=== PATIENT | female | born 1970 | race Caucasian/White ===

== ENCOUNTER 2017-12-26 01:58 | Inpatient (IN) ==
--- NOTE | 2017-12-26 05:10 | Internal Med History&Physical ---
<Ja Aguilar - Last Filed: 12/26/17 06:13> Date of Encounter: 12/26/17 Time of Encounter: 05:08 Internal Medicine - H&P: HPI Chief complaint: Nausea, Diarrhea Admitted From: Hospital to Hospital Transfer History of present illness: Ms. Palm is a 47 year old female with a PMH of COPD, diabetes mellitus type 2 , GERD, hypertension, hyperlipidemia, RA, thyroid disease, and tobacco dependence who was transferred from [facility] due to sepsis. The patient reported fever, chills, headache, shortness of breath, productive cough, nausea , and diarrhea 15 per day for the past 2 days. Patient is immunosuppressed on prednisone and leflunomide for her rheumatoid arthritis. Labs revealed a white blood count 29, respiratory alkalosis, hypokalemia, hypomagnesemia, and lactic level 3.3. Patient was given 3 L normal saline fluid bolus, started on empiric antibiotics, and blood cultures were collected. Patient was transferred for [facility] for further care. is at bedside Past Med Surg Social Fam HX - Past Medical History Medical history: COPD, diabetes, GERD, hyperlipidemia, hypertension, RA, thyroid disease, other Additional medical history: benign nodules in lungs, chronic diarrhea Psychiatric history: no psych history - Past Surgical History Surgical History: cholecystectomy, hysterectomy Additional surgical history: tubal ligation, bone marrow biopsy - Social History Smoking Status: Current every day smoker Smokeless Tobacco Status: No Alcohol use: none Drug use: none Current living situation: Home, With Family Activity Level: Independent ambulation - Family History Mother Hx Family Respiratory Disorders: Yes (COPD) Father Hx Family Medical Disorders: Yes (RA) Internal Medicine - H&P: Meds Cetirizine HCl [All Day Allergy] 10 mg PO DAILY 08/25/17 [History] Leflunomide [Leflunomide] 20 mg PO DAILY 08/25/17 [History] Levothyroxine [Synthroid] 50 mcg PO 0630 08/25/17 [History] Omeprazole [PriLOSEC] 20 mg PO DAILY 08/25/17 [History] glipiZIDE [Glipizide] 10 mg PO DAILY 08/25/17 [History] Albuterol Sulfate [Proair Hfa] 1 puff IH TID PRN 08/31/17 [History] Budesonide/Formoterol 160/4.5 [Symbicort 160/4.5] 2 puff IH BID 10/06/17 [ History] Lactobacillus Acidophilus [Acidophilus] 1 cap PO DAILY 10/06/17 [History] Lisinopril/Hydrochlorothiazide [Zestoretic 20-25 mg Tablet] 1 tab PO DAILY PRN 10/06/17 [History] Lovastatin [Lovastatin] 40 mg PO HS 10/06/17 [History] amLODIPine [Norvasc] 5 mg PO DAILY PRN 10/06/17 [History] predniSONE [PredniSONE] 15 mg PO DAILY 12/26/17 [History] 3 Allergy/AdvReac Type Severity Reaction Status Date / Time golimumab [From Simponi ARIA] Allergy Hives Verified 10/06/17 08:24 Oxycodone [From Percocet] AdvReac Itching Verified 10/06/17 08:24 tramadol AdvReac Hallucinati Verified 10/06/17 08:24 ng All Systems PM: A 10-system review of systems was performed and is negative for pertinent findings except as documented above in the HPI. - Constitutional Constitutional: chills, fatigue, fever(s), lethargy, weakness, no weight gain, no weight loss - EENT Eyes: no blurry vision, no diplopia Nose, mouth and throat: no sinus pain, no sore throat - Cardiovascular Cardiovascular ROS IM: palpitations, no chest pain, no dyspnea - Respiratory Respiratory: cough, chest congestion, excessive phlegm production (yellow), change in phlegm color, no wheezing - Gastrointestinal Gastrointestinal: abdominal pain, cramping, diarrhea, nausea, no constipation, no heartburn, no vomiting - Genitourinary Genitourinary: no dysuria, no urinary frequency, no urinary urgency - Musculoskeletal Musculoskeletal ROS IM: arthralgias, neck pain, no numbness, no tingling - Integumentary Integumentary IM: no erythema, no new lesions, no rash - Neurological Neurological ROS: headache(s), weakness, no confusion, no numbness, no tingling - Psychiatric Psychiatric: no anxiety, no depression - Endocrine Endocrine IM: fatigue, no polydipsia, no polyphagia, no polyuria - Hematologic/Lymphatic Hematologic/Lymphatic: no easy bleeding, no easy bruising - Head Head exam: Present: atraumatic, normocephalic - Eye Eye exam: Present: EOMI, PERRL, conjuntiva pink, sclera anicteric Pupils: Present: PERRL - ENT ENT exam: Present: mucous membranes dry, normal oropharynx - Neck Neck exam general surgery: Present: full ROM, normal inspection, supple, trachea midline. Absent: lymphadenopathy, tenderness, nuchal rigidity - Respiratory Respiratory exam: Present: decreased breath sounds, wheezes. Absent: accessory muscle use, rales, respiratory distress, rhonchi Additional comments: On 3 L oxygen via nasal cannula - Cardiovascular Cardiovascular exam: Present: RRR, +S1, +S2, tachycardia. Absent: diastolic murmur, gallop, rubs, systolic murmur - GI/Abdominal GI/Abdominal exam: Present: normal bowel sounds, soft, tenderness (Periumbilical ), no peritoneal signs. Absent: distended, guarding - Extremities Exam Extremities exam: Present: normal capillary refill, normal inspection, warm, radial pulses palpable and symmetrical. Absent: calf tenderness, cyanotic, pedal edema, tenderness - Back Exam Back exam: Present: normal inspection. Absent: CVA tenderness (L), CVA tenderness (R), paraspinal tenderness, tenderness - Neurological Exam Neurological exam: Present: alert, CN II-XII intact, oriented X3, no focal deficits. Absent: pronater drift, facial droop, speech deficit - Psychiatric Psychiatric exam: Present: normal affect, normal mood - Skin Skin exam: Present: dry, intact, normal color, warm Internal Med - H&P Results - Pulse Oximetry Interpretation Digit-Finger O2 Sat by Pulse Oximetry: 97 (On 3 L supplemental oxygen) - EKG Data -: EKG Interpreted by Myself EKG shows normal: sinus rhythm, intervals Rate: tachycardia (Heart rate 117, nonspecific ST-T wave abnormalities, intervals within normal limits) - Impressions XR/XR chest 1V portable IMPRESSION: 1. Stable chronic lateral costophrenic angle pulmonary opacities and partially loculated effusions compared to CT thorax 12/02/2017. 2. No acute pulmonary process. D/ / Jermaine Ellis MD / Jermaine Ellis MD Interpreting Provider: Jermaine Ellis MD - Assessment and plan (1) Sepsis Current Visit: Yes Status: Acute Assessment and plan: Patient met 3 of 4 SIRS criteria: Heart rate 126, respiratory rate 26, white blood count 29.0 Lactic acid 3.3, repeat lactic acid level pending Community-acquired pneumonia versus gastroenteritis as likely sources of infection UA negative Patient received 3 L normal saline sepsis bolus at [facility] prior to transfer Continue gentle hydration Continue empiric antibiotics Blood and sputum cultures pending Qualifiers: Sepsis type: sepsis due to unspecified organism Qualified Code(s): A41.9 - Sepsis, unspecified organism (2) Diarrhea Current Visit: Yes Status: Acute Assessment and plan: Colonoscopy 08/18/2017 was remarkable for mild inflammation within the sigmoid consistent with colitis. Biopsy showed 1 tumor adenoma otherwise no other diagnostic abnormality. There was no eosinophilic infiltrate. GI panel pending CT abdomen pelvis with contrast pending Continue antiemetics Continue gentle hydration Qualifiers: Diarrhea type: unspecified type Qualified Code(s): R19.7 - Diarrhea, unspecified (3) Community acquired pneumonia Current Visit: Yes Status: Acute Assessment and plan: CXR revealed no acute pulmonary process, stable chronic lateral costophrenic angle pulmonary opacities and partially loculated effusions compared to CT thorax 12/02/2017. Patient appears volume bleed on exam, she received 3 L normal saline in [facility] prior to arrival We will repeat chest x-ray following IV hydration Urine Legionella and sharp pneumonia antigens pending Sputum culture pending Continue empiric antibiotics De-escalate antibiotics based on culture results Continue bronchodilators Continue incentive spirometry Qualifiers: Laterality: unspecified laterality Qualified Code(s): J18.9 - Pneumonia, unspecified organism (4) COPD (chronic obstructive pulmonary disease) Current Visit: No Status: Chronic Assessment and plan: Not in acute exacerbation Continue bronchodilators Qualifiers: COPD type: unspecified COPD Qualified Code(s): J44.9 - Chronic obstructive pulmonary disease, unspecified (5) Rheumatoid arthritis Current Visit: Yes Status: Chronic Assessment and plan: Patient was diagnosed with rheumatoid arthritis approximate 2 years ago. She is managed with leflunomide. She has been challenged with Humira but had an allergic reaction, this was discontinued. About one to 2 months after reinitiation of leflunomide per patient report, she developed fever, fatigue, headache as found to have an elevated eosinophil count. While at [facility], a CT scan of the chest revealed multiple pulmonary nodules which were biopsied and consistent with rheumatoid nodules. Just prior to this event , she states she was on prednisone chronically and this was discontinued as well. Qualifiers: Rheumatoid arthritis location: unspecified site Rheumatoid factor presence : without rheumatoid factor Qualified Code(s): M06.00 - Rheumatoid arthritis without rheumatoid factor, unspecified site (6) Hypertension Current Visit: Yes Status: Chronic Assessment and plan: Hold home lisinopril/hydrochlorothiazide in the setting of sepsis to prevent ROLANDO Hydralazine IV prn Qualifiers: Hypertension type: essential hypertension Qualified Code(s): I10 - Essential (primary) hypertension (7) Hyperlipidemia Current Visit: No Status: Chronic Assessment and plan: Continue home meds Qualifiers: Hyperlipidemia type: unspecified Qualified Code(s): E78.5 - Hyperlipidemia , unspecified (8) Diabetes mellitus type 2 in obese Current Visit: No Status: Chronic Assessment and plan: Hemoglobin A1c 7.8 on 12/24/17 Continue low dose SSI Monitor Accu-Checks ADA diet (9) GERD (gastroesophageal reflux disease) Current Visit: No Status: Chronic Assessment and plan: Continue PPI Qualifiers: Esophagitis presence: esophagitis presence not specified Qualified Code(s) : K21.9 - Gastro-esophageal reflux disease without esophagitis (10) Hypothyroidism Current Visit: No Status: Chronic Assessment and plan: Continue home meds Qualifiers: Hypothyroidism type: unspecified Qualified Code(s): E03.9 - Hypothyroidism , unspecified (11) Hypokalemia Current Visit: Yes Status: Acute Assessment and plan: Potassium supplementation given at [facility] Repeat potassium level pending Continue monitoring (12) Hypomagnesemia Current Visit: Yes Status: Acute Assessment and plan: Magnesium supplementation given at [facility] Repeat magnesium level pending Continue monitoring (13) Tobacco dependence Current Visit: No Status: Chronic Assessment and plan: Tobacco cessation discussed Patient declined need for nicotine patch (14) DVT prophylaxis Current Visit: Yes Status: Acute Assessment and plan: Heparin subcutaneous TID (15) Adrenal insufficiency Current Visit: Yes Status: Acute Assessment and plan: Patient is chronically on 15 mg prednisone daily for the past 2 months, she has missed a few doses during the past few days Continue hydrocortisone IV for suspected adrenal insufficiency Closely monitor blood pressure - Time Spent With Patient Total time spent is greater than 50% in coordination of care (as documented) at patient's floor/unit and/or counseling patient: <Steve Bernabe - Last Filed: 12/26/17 07:15> Date of Encounter: 12/26/17 Time of Encounter: 06:15 - Constitutional Constitutional: chills, fever(s) - EENT Nose, mouth and throat: no nasal congestion, no sore throat - Cardiovascular Cardiovascular ROS IM: no chest pain, no dyspnea - Respiratory Respiratory: cough, chest congestion, excessive phlegm production, change in phlegm color - Gastrointestinal Gastrointestinal: cramping, diarrhea, nausea, no hematemesis, no hematochezia, no melena - Genitourinary Genitourinary: no dysuria, no flank pain, no hematuria - Constitutional Vitals: Temp Pulse Resp BP Pulse Ox 98.5 F 116 18 118/83 96 12/26/17 05:42 12/26/17 05:42 12/26/17 05:42 12/26/17 05:42 12/26/17 05:42 General appearance: Present: cooperative, mild distress, A&O X 3, pleasant, answers questions appropriately - Head Head exam: Present: normal inspection - Eye Eye exam: Present: PERRL. Absent: scleral icterus Pupils: Present: normal accommodation - ENT ENT exam: Present: mucous membranes dry, normal oropharynx - Neck Neck exam general surgery: Present: supple - Respiratory Respiratory exam: Present: decreased breath sounds, wheezes. Absent: chest wall tenderness - Cardiovascular Cardiovascular exam: Present: RRR, +S1, +S2, tachycardia - GI/Abdominal GI/Abdominal exam: Present: normal bowel sounds, soft, tenderness (mild). Absent: hepatomegaly, mass, splenomegaly - Extremities Exam Extremities exam: Present: normal capillary refill, warm, radial pulses palpable and symmetrical. Absent: pedal edema, tenderness - Back Exam Back exam: Absent: CVA tenderness (L), CVA tenderness (R) - Psychiatric Psychiatric exam: Present: normal affect, normal mood - Skin Skin exam: Present: dry, intact, warm - Attending Attestation I discussed the [place], past medical history, review of systems, lab data, and exam findings with Dr. Aguilar. I then saw and examined patient independently. I reviewed the records from [facility], reviewed the x-ray personally, interviewed the patient, and examined patient independently. Of note, patient is on chronic Prednisone 15 mg a day for at least 2 months, if not longer. She takes this medication along with other medications for treatment of her rheumatoid arthritis. Given her clinical presentation of sepsis, profound diarrhea, abdominal pain and cramping, I am concerned about adrenal insufficiency with possible evolving crisis. She received 3 L of fluid boluses at [facility]. We will keep her on IV fluids here as well as antibiotics. In addition, we will keep her on stress dose IV steroids for treatment of adrenal insufficiency and sepsis. If then she declines hemodynamically, she will need to be placed in the ICU for ongoing support. However, at the present time, she is maintaining hemodynamic stability. Despite the fluid boluses she has received at [facility], she still appears to be intravascular dry. We will keep her on IV fluid hydration and rebolus as necessary. Although she has minimal abdominal pain now, I do recommend ordering a CT scan of the abdomen and pelvis given her profound leukocytosis, lactic acidosis, and GI symptomatology. i discussed this with patient and her and they are in agreement with the plan. Other than my comments above and noted physical exam findings, I agree with Dr. Aguilar's assessment and plan. - Assessment and plan (1) Hypokalemia Current Visit: Yes Status: Acute (2) Hypomagnesemia Current Visit: Yes Status: Acute (3) Sepsis Current Visit: Yes Status: Acute Qualifiers: Sepsis type: sepsis due to unspecified organism Qualified Code(s): A41.9 - Sepsis, unspecified organism (4) DVT prophylaxis Current Visit: Yes Status: Acute (5) COPD (chronic obstructive pulmonary disease) Current Visit: No Status: Chronic Qualifiers: COPD type: unspecified COPD Qualified Code(s): J44.9 - Chronic obstructive pulmonary disease, unspecified (6) Community acquired pneumonia Current Visit: Yes Status: Acute Qualifiers: Laterality: unspecified laterality Qualified Code(s): J18.9 - Pneumonia, unspecified organism (7) Tobacco dependence Current Visit: No Status: Chronic (8) Hypertension Current Visit: Yes Status: Chronic Qualifiers: Hypertension type: essential hypertension Qualified Code(s): I10 - Essential (primary) hypertension (9) Hyperlipidemia Current Visit: No Status: Chronic Qualifiers: Hyperlipidemia type: unspecified Qualified Code(s): E78.5 - Hyperlipidemia , unspecified (10) GERD (gastroesophageal reflux disease) Current Visit: No Status: Chronic Qualifiers: Esophagitis presence: esophagitis presence not specified Qualified Code(s) : K21.9 - Gastro-esophageal reflux disease without esophagitis (11) Rheumatoid arthritis Current Visit: Yes Status: Chronic Qualifiers: Rheumatoid arthritis location: unspecified site Rheumatoid factor presence : without rheumatoid factor Qualified Code(s): M06.00 - Rheumatoid arthritis without rheumatoid factor, unspecified site (12) Hypothyroidism Current Visit: No Status: Chronic Qualifiers: Hypothyroidism type: unspecified Qualified Code(s): E03.9 - Hypothyroidism , unspecified (13) Diabetes mellitus type 2 in obese Current Visit: No Status: Chronic (14) Diarrhea Current Visit: Yes Status: Acute Qualifiers: Diarrhea type: unspecified type Qualified Code(s): R19.7 - Diarrhea, unspecified (15) Adrenal insufficiency Current Visit: Yes Status: Acute - Time Spent With Patient Total time spent is greater than 50% in coordination of care (as documented) at patient's floor/unit and/or counseling patient:
[2017-12-26] MEDS ORDERED: *HR* HYDROcodone/Acet 5/325 mg TABLET PO PRN (05:49)
[2017-12-26] MEDS ORDERED: D5% in Water 1,000 ML IVC PRN (05:49)
[2017-12-26] MEDS ORDERED: Ondansetron 4 MG/2 ML VIAL IVP PRN (05:49)
[2017-12-26] MEDS ORDERED: Dextrose Gel 15 GM/37.5 ML TUBE PO PRN ×2 (05:49)
[2017-12-26] MEDS ORDERED: Naloxone 0.4 MG/ML INJ IVP PRN (05:49)
[2017-12-26] MEDS ORDERED: *HR* Dextrose 50 % in Water (Syg) 50 ML SYRINGE IVP PRN (05:49)
[2017-12-26] MEDS ORDERED: Ketorolac 15 MG/ML VIAL IVP ONE (05:51)
[2017-12-26] MEDS ORDERED: 0.9 % Sodium Chloride 1,000 ML IVC SCH ×2 (06:00→06:41)
[2017-12-26] MEDS ORDERED: Vancomycin (wt based) 1,000 MG VIAL IVPB SCH (06:00)
[2017-12-26] MEDS ORDERED: Isovue-370 500 ML INFUS..BTL IV ONE (06:09)
[2017-12-26] MEDS: *HR* Heparin 5,000 UNIT/ML VIAL SQ SCH ×3 (06:30→22:13)
[2017-12-26 06:45] LABS: Basophils % 0.3 %
[2017-12-26 06:47] LABS: Basophils # 0.1 K/mcL (0.0-0.2); Eosinophils # 0.2 K/mcL (0.0-0.6); Eosinophils % 0.7 %; Hematocrit 34.2 % (35.3-44.9); Hemoglobin 10.8 g/dL (11.5-15.4); Immature Granulocytes % 1.5 % (0-4); Lymphocytes # 1.8 K/mcL (0.6-4.6); Lymphocytes % 6.3 %; Mean Corpuscular HGB Conc 31.6 g/dL (31.6-35.5); Mean Corpuscular Hemoglobin 27.9 pg (28.0-33.3); Mean Corpuscular Volume 88.4 fL (83.0-100.0); Mean Platelet Volume 11.4 fL (9.4-12.4); Monocytes % 3.6 %; Platelet Count 246 K/mcL (140-400); Red Blood Count 3.87 M/mcL (3.82-4.97); Red Cell Distribution Width 17.7 % (11.5-14.5); Segmented Neutrophils % 87.6 %
[2017-12-26 07:04] LABS: BUN/Creatinine Ratio 14 (6-26); Blood Urea Nitrogen 9 mg/dL (6-20); Calcium 8.1 mg/dL (8.6-10.3); Carbon Dioxide 24 mEq/L (23-29); Chloride 105 mEq/L (98-107); Glucose 161 mg/dL (70-105); Osmolality,Calculated 284 (280-300); Potassium 3.7 mEq/L (3.5-5.1); Sodium 136 mEq/L (136-145); eGFR For African Americans > 60 (> 60); eGFR For Non-African Americans > 60 (> 60)
[2017-12-26 07:15] LABS: Neutrophils # 24.6 K/mcL (1.6-8.9)
[2017-12-26] MEDS: Ipratropium/Albuterol Neb 3 ML IH SCH ×5 (07:38→23:53)
[2017-12-26] MEDS: Hydrocortisone Sodium Succ 100 MG/2 ML VIAL IVP SCH ×3 (07:42→15:55)
[2017-12-26] MEDS ORDERED: Hydrocortisone Sodium Succ 100 MG/2 ML VIAL IVP SCH (08:00)
[2017-12-26] MEDS: Insulin LISPRO 300 UNITS/3 ML VIAL SQ SCH ×4 (08:24→22:14)
[2017-12-26 08:35] LABS: Platelet Estimate Normal (Normal)
[2017-12-26] MEDS: MetroNIDAZOLE 500 MG/100 ML 500 MG/100 ML BAG IVPB SCH ×2 (09:11→15:54)
[2017-12-26 11:30] LABS: Adenovirus F 40/41 PCR Not detected (Not detect); Astrovirus PCR Not detected (Not detect); C.difficile Toxin A/B by PCR Not detected (Not detect); Cryptosporidium by PCR Not detected (Not detect); Cyclospora cayetanensis PCR Not detected (Not detect); E. coli O157 by PCR Not detected (Not detect); Entamoeba histolytica PCR Not detected (Not detect); Enteroaggregative E.coli(EAEC) Not detected (Not detect); Enteropathogenic E.coli(EPEC) DETECTED (Not detect); Enterotoxigenic E.coli (ETEC) Not detected (Not detect); Giardia lamblia PCR Not detected (Not detect); Norovirus GI/GII PCR Not detected (Not detect); Plesiomonas shigelloides PCR Not detected (Not detect); Rotavirus A PCR Not detected (Not detect); Salmonella PCR Not detected (Not detect); Sapovirus PCR Not detected (Not detect); Shig/EnteroinvasiveE coli EIEC Not detected (Not detect); Shigalike tox-prod E coli STEC Not detected (Not detect); Vibrio PCR Not detected (Not detect); Vibrio cholerae PCR Not detected (Not detect); Yersinia enterocolitica PCR Not detected (Not detect)
[2017-12-26 11:34] LABS: Campylobacter by PCR DETECTED (Not detect)
[2017-12-26] MEDS ORDERED: Piperacillin/Tazobactam 3.375 GM in 0.9 % Sodium Chloride Mini Bag 100 ML IVPB SCH (12:00)
[2017-12-26] MEDS: Azithromycin 500 MG in D5% in Water 250 ML IVPB SCH (12:34)
--- NOTE | 2017-12-26 14:40 | Sepsis Event Note ---
Sepsis Reassessment Note - Evaluation Sepsis Screen: Sepsis Risk Current Stage of Sepsis: sepsis Possible Source of Sepsis: GI tract/intra-abdominal - Focused Exam Date of Encounter: 12/26/17 Time of Encounter: 11:00 Vital Signs: Vital Signs Temp Pulse Resp BP Pulse Ox 12/26/17 11:57 97.6 F 88 16 118/77 95 12/26/17 11:31 16 98 12/26/17 09:15 95 12/26/17 07:48 97.4 F L 112 16 136/81 97 12/26/17 07:38 16 98 12/26/17 05:42 98.5 F 116 18 118/83 96 Respiratory Exam: Present: wheezes, rhonchi Cardiovascular Exam: Present: RRR Capillary Refill: < 2 seconds Peripheral Pulse Strength: 3+ normal Peripheral Pulse Location: Pedal Skin Exam: unremarkable
--- NOTE | 2017-12-26 16:01 | Internal Med Progress Note ---
<Gilberto Fierro - Last Filed: 12/26/17 17:06> Date of Encounter: 12/26/17 Time of Encounter: 10:30 - Assessment and plan (1) Community acquired pneumonia Current Visit: Yes Status: Acute Assessment and plan: - patient presented with fever, COCHRAN, SOB on admission. - Her chest CT was positive for small bilateral pleural effusion with mild interstitial edema - we were initially treating her with broad spectrum Abx : Vanc/Zosyn, currently she's been treated with Azithromycin to cover for CAP in conjunction with her diarrhea. She also has coverage with flagyl, Ciprofloxacin. Her sputum cultures are pending - Qualifiers: Laterality: unspecified laterality Qualified Code(s): J18.9 - Pneumonia, unspecified organism (2) Diarrhea Current Visit: Yes Status: Acute Assessment and plan: -patient was admitted for multiple episodes of watery diarrhea (15 right before she was admitted to the ED). This could be secondary to her recent visit to [place]- with possible exposure to either undercooked meat, chicken or contaminated water - her GI panel was positive for Campylobactor jejuni, and EPEC. She also had a colonoscopy 08/18/2017 was remarkable for mild inflammation within the sigmoid consistent with colitis, although colitis would manifest with blood in the stool and guarding in PE which the patient did not seem to have - she's on day 1 of Azithromycin, Cipro and Flagyl. Patient's vitals are WNL , - We will start with gentle hydration for her diarrhea Qualifiers: Diarrhea type: unspecified type Qualified Code(s): R19.7 - Diarrhea, unspecified (3) Sepsis Current Visit: Yes Status: Acute Assessment and plan: - Patient was admitted for sepsis - met 3/4 SIRS criteria, secondary to campylobactor/EPEC/PNA. elevated WBC : 28.1, Neutrophils : 24.6, elevated lactic acid: 2.1 - sepsis likely resolved . - Initially on Vanc, Zosyn and Levofloxacin. Currently switched to Azithromycin , Ciprofloxacin once the results of the GI stool panel were available (+ve for Cjejuni and EPEC) . Not sure about the source of her Pneumonia at the moment. It 's likely to be CAP and Azithromycin should cover that Qualifiers: Sepsis type: sepsis due to unspecified organism Qualified Code(s): A41.9 - Sepsis, unspecified organism (4) COPD (chronic obstructive pulmonary disease) Current Visit: No Status: Chronic Assessment and plan: - patient has a Hx of COPD. She's not using home oxygen - today she is in no acute distress- denies any new SOB, or any productive cough . His Spo2 > 94% - We will continue to monitor her vitals Qualifiers: COPD type: unspecified COPD Qualified Code(s): J44.9 - Chronic obstructive pulmonary disease, unspecified (5) Diabetes mellitus type 2 in obese Current Visit: No Status: Chronic Assessment and plan: Hemoglobin A1c 7.8 on 12/24/17 Continue low dose SSI Monitor Accu-Checks ADA diet (6) Hypokalemia Current Visit: Yes Status: Acute Assessment and plan: - her initial episode of hypoklemia seems to have resolved. She was given Potassium supplementation at [facility] - this could be secondary to GI loses due to multiple episodes of water diarrhea - we will continue to monitor her electrolytes (7) Hypomagnesemia Current Visit: Yes Status: Acute Assessment and plan: - This could be secondary ther GI losses due to diarrhea . She was given kmagnesium supplementation given at [facility] - Her repeat magnesium level pending - we will continue to monitor her . (8) Tobacco dependence Current Visit: No Status: Chronic Assessment and plan: Tobacco cessation discussed Patient declined need for nicotine patch (9) Hypertension Current Visit: Yes Status: Chronic Assessment and plan: - she has a chronic Hx of HTN - patient was hypertensive (151/82) at 15:33 -She's on amlodipine 5mg, along with Hydralazine PRN - We will continue to her monitor her Qualifiers: Hypertension type: essential hypertension Qualified Code(s): I10 - Essential (primary) hypertension (10) Hyperlipidemia Current Visit: No Status: Chronic Assessment and plan: Continue home meds Qualifiers: Hyperlipidemia type: unspecified Qualified Code(s): E78.5 - Hyperlipidemia , unspecified (11) GERD (gastroesophageal reflux disease) Current Visit: No Status: Chronic Assessment and plan: Continue PPI Qualifiers: Esophagitis presence: esophagitis presence not specified Qualified Code(s) : K21.9 - Gastro-esophageal reflux disease without esophagitis (12) Rheumatoid arthritis Current Visit: Yes Status: Chronic Assessment and plan: Patient was diagnosed with rheumatoid arthritis approximate 2 years ago. She is managed with leflunomide. - in the light of current infectious picture where she has potentially a CAP and Diarrhea secondary to C Jejuni/EPEC, we will discontinue her immunosuppressants Qualifiers: Rheumatoid arthritis location: unspecified site Rheumatoid factor presence : without rheumatoid factor Qualified Code(s): M06.00 - Rheumatoid arthritis without rheumatoid factor, unspecified site (13) Hypothyroidism Current Visit: No Status: Chronic Assessment and plan: Continue home meds Qualifiers: Hypothyroidism type: unspecified Qualified Code(s): E03.9 - Hypothyroidism , unspecified (14) Adrenal insufficiency Current Visit: Yes Status: Acute Assessment and plan: Patient is chronically on 15 mg prednisone daily for the past 2 months for her RA Continue Stress does steroids (hydrocortisone IV ) for suspected adrenal insufficiency Closely monitor blood pressure (15) DVT prophylaxis Current Visit: Yes Status: Acute Assessment and plan: Heparin subcutaneous TID (16) Acute respiratory failure with hypoxia Current Visit: Yes Status: Acute Assessment and plan: - this could be secondary to her Pneumonia. - She's currently requiring 2L of oxygen .she doesn't use oxygen at home. She endorse no acute distress today - patient is currently on day 1of cipro/Azithromycin. Altogether she would need 3 days of azithromycin and 5 days of cirpofloxacin - will continue to monitor her vitals - - Time Spent With Patient Total time spent is greater than 50% in coordination of care (as documented) at patient's floor/unit and/or counseling patient: - Subjective Interval history: no acute events overnight. Patient is requiring 2Lof oxygen to breathe appropriately. She endorses 4 episodes of watery diarrhea today. We have discontinued her Vanc and Zosyn and she's currently on Cipro/Flagyl/ Azithromyxin for her diarrhea and CAP. - Constitutional Vitals: Temp Pulse Resp BP Pulse Ox 97.8 F 92 16 151/82 96 12/26/17 15:33 12/26/17 15:33 12/26/17 15:33 12/26/17 15:33 12/26/17 15:33 General appearance: Present: cooperative, mild distress, A&O X 3, pleasant, answers questions appropriately - Head Head exam: Present: atraumatic, normal inspection, normocephalic - Respiratory Additional comments: CTAB, no rales, ronchi or wheezing - Cardiovascular Additional comments: RRR, no gallops, murmurs or rubs - GI/Abdominal Additional comments: hyperactive bowel sounds, no guarding or rebound tenderness - Extremities Exam Additional comments: ROM appropriate for condition, skin warm and good turgor Internal Medicine: Result - Labs CBC & Chem 7: 12/26/17 06:25 12/26/17 06:25 Labs: Short CBC 12/26/17 Range/Units 06:25 WBC 28.1 H (4.3-11.1) K/mcL Hgb 10.8 L D (11.5-15.4) g/dL Hct 34.2 L (35.3-44.9) % Plt Count 246 (140-400) K/mcL Neutrophils # 24.6 H (1.6-8.9) K/mcL BMP 12/26/17 06:25 Sodium 136 Potassium 3.7 Chloride 105 Carbon Dioxide 24 BUN 9 Creatinine 0.63 Glucose 161 H Calcium 8.1 L Cardiac Enzymes 12/26/17 12/26/17 Range/Units 06:25 12:05 Troponin I 0.03 < 0.03 (< 0.04) ng/mL - Impressions Impressions Chest X-Ray 12/26/17 05:53 IMPRESSION: Bilateral atelectasis or infiltrates with small pleural effusions. Follow up to resolution is suggested. D/ / 12/26/2017 13:42:23 Maria A Gruber MD / [facility] Interpreting Provider: Maria A Gruber MD Abdomen/Pelvis CT 12/26/17 09:45 IMPRESSION: 1. Small bilateral pleural effusions with mild interstitial edema. 2. Unchanged multiple solid bilateral pulmonary nodules. RECOMMENDATION: Fleischner Society guidelines for follow-up and management of incidentally detected pulmonary nodules: Multiple Solid Nodules: Nodule size greater than 8 mm In a low-risk patient, CT at 3-6 months, then consider CT at 18-24 months. In a high-risk patient, CT at 3-6 months, then CT at 18-24 months. D/ / Gabino Cao MD / Gabino Cao MD Interpreting Provider: Gabino Cao MD Consult Discharge Plan - Plan Referrals: Elyssa Gates MD [Primary Care Provider] - <Himanshu Rordiguez - Last Filed: 12/27/17 07:46> Date of Encounter: 12/26/17 - Assessment and plan (1) Hypokalemia Current Visit: Yes Status: Acute (2) Hypomagnesemia Current Visit: Yes Status: Acute (3) Sepsis Current Visit: Yes Status: Inactive Qualifiers: Sepsis type: sepsis due to unspecified organism Qualified Code(s): A41.9 - Sepsis, unspecified organism (4) DVT prophylaxis Current Visit: Yes Status: Acute (5) COPD (chronic obstructive pulmonary disease) Current Visit: No Status: Chronic Qualifiers: COPD type: unspecified COPD Qualified Code(s): J44.9 - Chronic obstructive pulmonary disease, unspecified (6) Community acquired pneumonia Current Visit: Yes Status: Acute Qualifiers: Laterality: unspecified laterality Qualified Code(s): J18.9 - Pneumonia, unspecified organism (7) Tobacco dependence Current Visit: No Status: Chronic (8) Hypertension Current Visit: Yes Status: Chronic Qualifiers: Hypertension type: essential hypertension Qualified Code(s): I10 - Essential (primary) hypertension (9) Hyperlipidemia Current Visit: No Status: Chronic Qualifiers: Hyperlipidemia type: unspecified Qualified Code(s): E78.5 - Hyperlipidemia , unspecified (10) GERD (gastroesophageal reflux disease) Current Visit: No Status: Chronic Qualifiers: Esophagitis presence: esophagitis presence not specified Qualified Code(s) : K21.9 - Gastro-esophageal reflux disease without esophagitis (11) Rheumatoid arthritis Current Visit: Yes Status: Chronic Qualifiers: Rheumatoid arthritis location: unspecified site Rheumatoid factor presence : without rheumatoid factor Qualified Code(s): M06.00 - Rheumatoid arthritis without rheumatoid factor, unspecified site (12) Hypothyroidism Current Visit: No Status: Chronic Qualifiers: Hypothyroidism type: unspecified Qualified Code(s): E03.9 - Hypothyroidism , unspecified (13) Diabetes mellitus type 2 in obese Current Visit: No Status: Chronic (14) Diarrhea Current Visit: Yes Status: Acute Qualifiers: Diarrhea type: unspecified type Qualified Code(s): R19.7 - Diarrhea, unspecified (15) Adrenal insufficiency Current Visit: Yes Status: Acute (16) Acute respiratory failure with hypoxia Current Visit: Yes Status: Acute - Time Spent With Patient Total time spent is greater than 50% in coordination of care (as documented) at patient's floor/unit and/or counseling patient: - Constitutional Vitals: Temp Pulse Resp BP Pulse Ox 97.8 F 80 16 128/86 97 12/27/17 05:22 12/27/17 05:22 12/27/17 05:22 12/27/17 05:22 12/27/17 05:22 Internal Medicine: Result - Labs CBC & Chem 7: 12/27/17 05:16 12/27/17 05:16 Labs: Short CBC 12/26/17 12/27/17 Range/Units 06:25 05:16 WBC 14.1 H (4.3-11.1) K/mcL Hgb 9.8 L (11.5-15.4) g/dL Hct 30.6 L (35.3-44.9) % Plt Count 201 (140-400) K/mcL Neutrophils # 24.6 H 12.9 H (1.6-8.9) K/mcL BMP 12/27/17 05:16 Sodium 137 Potassium 3.7 Chloride 108 H Carbon Dioxide 21 L BUN 9 Creatinine 0.55 L Glucose 247 H Calcium 8.4 L Cardiac Enzymes 12/26/17 12/26/17 Range/Units 12:05 18:24 Troponin I < 0.03 < 0.03 (< 0.04) ng/mL - Impressions Impressions Chest X-Ray 12/26/17 05:53 IMPRESSION: Bilateral atelectasis or infiltrates with small pleural effusions. Follow up to resolution is suggested. D/ / 12/26/2017 13:42:23 Maria A Gruber MD / [facility] Interpreting Provider: Maria A Gruber MD Abdomen/Pelvis CT 12/26/17 09:45 IMPRESSION: 1. Small bilateral pleural effusions with mild interstitial edema. 2. Unchanged multiple solid bilateral pulmonary nodules. RECOMMENDATION: Fleischner Society guidelines for follow-up and management of incidentally detected pulmonary nodules: Multiple Solid Nodules: Nodule size greater than 8 mm In a low-risk patient, CT at 3-6 months, then consider CT at 18-24 months. In a high-risk patient, CT at 3-6 months, then CT at 18-24 months. D/ / Gabino Cao MD / Gabino Cao MD Interpreting Provider: Gabino Cao MD - Attending Attestation I examined this patient and my medical decision-making was reviewed with the Resident Physician Dr. Fierro. I agree with the documented findings, disposition and treatment plan as described except to the extent set forth below. Ms. Palm is a 47 year old female with a PMH of COPD, diabetes mellitus type 2 , GERD, hypertension, hyperlipidemia, RA, thyroid disease, and tobacco dependence who was transferred from [place] ED due to sepsis. The patient reported fever, chills, headache, shortness of breath, productive cough, nausea , and diarrhea 15 per day for the past 2 days. Patient is immunosuppressed on prednisone and leflunomide for her rheumatoid arthritis. Gen: A, A, O x 3 Chest: Diminished BS b/l, mild to moderate wheezing Heart: S1S2+ RRR Abd: Soft, NT a/p 1. Sepsis with CAP and enteritis 2. Acute CAP - mostly bacterial cont empirical abx Cipro and Azithromycin 3. Acute enteritis- infectious Stool studies - Campylobacter +ve, EPEC placed on Cipro and Flagyl IV hydration 4. Acute hypoxic resp failure 5. COPD exacerbation duoneb and o2 Steroids
[2017-12-27] MEDS: Hydrocortisone Sodium Succ 100 MG/2 ML VIAL IVP SCH ×2 (01:59→08:32)
[2017-12-27] MEDS: MetroNIDAZOLE 500 MG/100 ML 500 MG/100 ML BAG IVPB SCH ×3 (01:59→17:21)
[2017-12-27] MEDS ORDERED: Levofloxacin 750 MG/150 ML 750 MG/150 ML BAG IVPB SCH (02:00)
[2017-12-27] MEDS: Ipratropium/Albuterol Neb 3 ML IH SCH ×6 (04:07→23:28)
[2017-12-27 06:06] LABS: Basophils % 0.2 %; Hematocrit 30.6 % (35.3-44.9); Hemoglobin 9.8 g/dL (11.5-15.4); Immature Granulocytes % 0.9 % (0-4); Lymphocytes # 0.7 K/mcL (0.6-4.6); Lymphocytes % 4.7 %; Mean Corpuscular Hemoglobin 28.8 pg (28.0-33.3); Mean Platelet Volume 12.1 fL (9.4-12.4); Monocytes # 0.4 K/mcL (0.0-1.3); Monocytes % 2.6 %; Neutrophils # 12.9 K/mcL (1.6-8.9); Platelet Count 201 K/mcL (140-400); Red Cell Distribution Width 17.6 % (11.5-14.5); Segmented Neutrophils % 91.6 %
[2017-12-27 06:20] LABS: BUN/Creatinine Ratio 16 (6-26); Blood Urea Nitrogen 9 mg/dL (6-20); Calcium 8.4 mg/dL (8.6-10.3); Carbon Dioxide 21 mEq/L (23-29); Chloride 108 mEq/L (98-107); Glucose 247 mg/dL (70-105); Osmolality,Calculated 291 (280-300); Potassium 3.7 mEq/L (3.5-5.1); Sodium 137 mEq/L (136-145); eGFR For African Americans > 60 (> 60); eGFR For Non-African Americans > 60 (> 60)
[2017-12-27] MEDS: *HR* Heparin 5,000 UNIT/ML VIAL SQ SCH ×3 (06:50→23:03)
[2017-12-27] MEDS: Acetaminophen 325 MG TABLET PO PRN (06:55)
[2017-12-27] MEDS: Insulin LISPRO 300 UNITS/3 ML VIAL SQ SCH ×4 (08:31→23:04)
[2017-12-27] MEDS: amLODIPine 5 MG TABLET PO SCH (08:32)
--- NOTE | 2017-12-27 10:46 | Internal Med Progress Note ---
<Gilberto Fierro - Last Filed: 12/27/17 14:31> Date of Encounter: 12/27/17 Time of Encounter: 10:20 - Assessment and plan (1) Community acquired pneumonia Current Visit: Yes Status: Acute Assessment and plan: - patient presented with fever, COCHRAN, SOB on admission. - Her chest CT was positive for small bilateral pleural effusion with mild interstitial edema - Her WBC has been trending down (28.1-14.1) , she denies any discomfort in breathing, her PO2 > 90%, I appreciated no Egophony, or tactile fremitus on her physical exam. - we were initially treating her with broad spectrum Abx : Vanc/Zosyn, currently she's been treated with Azithromycin (day 2) to cover for CAP in conjunction with her diarrhea. She also has coverage with flagyl, Ciprofloxacin (day 2 of her Abx) . - Qualifiers: Laterality: unspecified laterality Qualified Code(s): J18.9 - Pneumonia, unspecified organism (2) Diarrhea Current Visit: Yes Status: Acute Assessment and plan: -Patient was admitted for multiple episodes of watery diarrhea (15 right before she was admitted to the ED). This could be secondary to her recent visit to [place]- with possible exposure to either undercooked meat, chicken or contaminated water. Today her diarrhea frequency has gone down (2 episodes since morning) . She endorses no bloating, abdominal cramps, or any episodes of vomiting - her GI panel was positive for Campylobactor jejuni, and EPEC. She also had a colonoscopy 08/18/2017 was remarkable for mild inflammation within the sigmoid consistent with colitis, although colitis would manifest with blood in the stool and guarding, her PE did not exhibit bloody diarrhea or guarding . - she's on day 2 of Azithromycin, Cipro and Flagyl. Patient's vitals are WNL , - We will start with gentle hydration for her diarrhea Qualifiers: Diarrhea type: unspecified type Qualified Code(s): R19.7 - Diarrhea, unspecified (3) COPD (chronic obstructive pulmonary disease) Current Visit: No Status: Chronic Assessment and plan: - patient has a Hx of COPD. She's not using home oxygen - today she is in no acute distress- denies any new SOB, or any productive cough . His Spo2 > 94% - We will continue to monitor her vitals Qualifiers: COPD type: unspecified COPD Qualified Code(s): J44.9 - Chronic obstructive pulmonary disease, unspecified (4) Diabetes mellitus type 2 in obese Current Visit: No Status: Chronic Assessment and plan: Hemoglobin A1c 7.8 on 12/24/17 Continue low dose SSI Monitor Accu-Checks ADA diet (5) Tobacco dependence Current Visit: No Status: Chronic Assessment and plan: Tobacco cessation discussed - nicotine patch ordered because of increased BP secondary to her been without cigarette (6) Hypertension Current Visit: Yes Status: Chronic Assessment and plan: - she has a chronic Hx of HTN - patient was hypertensive (160/90) at 14:00, this could be secondary to her smoke craving. -She's on amlodipine 5mg, we started her on her home medication of lisinopril - HCTZ - We will continue to her monitor her BP status Qualifiers: Hypertension type: essential hypertension Qualified Code(s): I10 - Essential (primary) hypertension (7) Hyperlipidemia Current Visit: No Status: Chronic Assessment and plan: Continue home meds Qualifiers: Hyperlipidemia type: unspecified Qualified Code(s): E78.5 - Hyperlipidemia , unspecified (8) GERD (gastroesophageal reflux disease) Current Visit: No Status: Chronic Assessment and plan: Continue PPI Qualifiers: Esophagitis presence: esophagitis presence not specified Qualified Code(s) : K21.9 - Gastro-esophageal reflux disease without esophagitis (9) Rheumatoid arthritis Current Visit: Yes Status: Chronic Assessment and plan: Patient was diagnosed with rheumatoid arthritis approximate 2 years ago. She is managed with leflunomide. - in the light of current infectious picture where she has potentially a CAP and Diarrhea secondary to C Jejuni/EPEC, we will discontinue her immunosuppressants Qualifiers: Rheumatoid arthritis location: unspecified site Rheumatoid factor presence : without rheumatoid factor Qualified Code(s): M06.00 - Rheumatoid arthritis without rheumatoid factor, unspecified site (10) Hypothyroidism Current Visit: No Status: Chronic Assessment and plan: Continue home meds Qualifiers: Hypothyroidism type: unspecified Qualified Code(s): E03.9 - Hypothyroidism , unspecified (11) Adrenal insufficiency Current Visit: Yes Status: Acute Assessment and plan: Patient is chronically on 15 mg prednisone daily for the past 2 months for her RA Continue Stress does steroids (hydrocortisone IV ) for suspected adrenal insufficiency Closely monitor blood pressure (12) DVT prophylaxis Current Visit: Yes Status: Acute Assessment and plan: Heparin subcutaneous TID (13) Acute respiratory failure with hypoxia Current Visit: Yes Status: Acute Assessment and plan: - this could be secondary to her Pneumonia. - it has resolved - She's currently requiring 2L of oxygen .she doesn't use oxygen at home. She endorses no acute distress today. - patient is currently on day 2 of cipro/Azithromycin. Altogether she would need 3 days of azithromycin and 5 days of cirpofloxacin - will continue to monitor her vitals - - Time Spent With Patient Total time spent is greater than 50% in coordination of care (as documented) at patient's floor/unit and/or counseling patient: - Subjective Interval history: no acute events overnight.v Patient did not feel the need to be on 2L oxygen last night , she endorses she wasn't SOB when she was not using the oxygen ( does have a PMHx of [employer] with no home O2 requirement) . She had 6 episodes of watery diarrhea yesterday but today she has had 2 since morning. She denies feeling fatigue, abdominal cramps, nausea, bloating. Her GI panel was positive for Campylobactor and EPEC, therefore we discontinued her Vanc and Zosyn and she 's currently on day 2 Cipro/Flagyl/Azithromyxin for her diarrhea and CAP. She' ll be on Azithromycin for a total of 3 days and Cipro for a total of 5 days. - Constitutional Vitals: Temp Pulse Resp BP Pulse Ox 97.9 F 75 16 132/75 97 12/27/17 07:46 12/27/17 07:46 12/27/17 07:46 12/27/17 07:46 12/27/17 08:30 General appearance: Present: cooperative, mild distress, A&O X 3, pleasant, answers questions appropriately - Head Head exam: Present: atraumatic, normal inspection, normocephalic - Respiratory Additional comments: CTAB, nl to percussion, no rales, ronchi or stridor. - GI/Abdominal Additional comments: soft, non-tender, normal bowel sounds. - Extremities Exam Additional comments: full ROM, no edema or tenderness Internal Medicine: Result - Labs CBC & Chem 7: 12/27/17 05:16 12/27/17 05:16 Labs: Short CBC 12/27/17 Range/Units 05:16 WBC 14.1 H (4.3-11.1) K/mcL Hgb 9.8 L (11.5-15.4) g/dL Hct 30.6 L (35.3-44.9) % Plt Count 201 (140-400) K/mcL Neutrophils # 12.9 H (1.6-8.9) K/mcL BMP 12/27/17 05:16 Sodium 137 Potassium 3.7 Chloride 108 H Carbon Dioxide 21 L BUN 9 Creatinine 0.55 L Glucose 247 H Calcium 8.4 L Cardiac Enzymes 12/26/17 12/26/17 Range/Units 12:05 18:24 Troponin I < 0.03 < 0.03 (< 0.04) ng/mL - Impressions Impressions Chest X-Ray 12/26/17 05:53 IMPRESSION: Bilateral atelectasis or infiltrates with small pleural effusions. Follow up to resolution is suggested. D/ / 12/26/2017 13:42:23 Maria A Gruber MD / rosalinda Interpreting Provider: Maria A Gruber MD Abdomen/Pelvis CT 12/26/17 09:45 IMPRESSION: 1. Small bilateral pleural effusions with mild interstitial edema. 2. Unchanged multiple solid bilateral pulmonary nodules. RECOMMENDATION: Fleischner Society guidelines for follow-up and management of incidentally detected pulmonary nodules: Multiple Solid Nodules: Nodule size greater than 8 mm In a low-risk patient, CT at 3-6 months, then consider CT at 18-24 months. In a high-risk patient, CT at 3-6 months, then CT at 18-24 months. D/ / Gabino Cao MD / Gabino Cao MD Interpreting Provider: Gabino Cao MD Consult Discharge Plan - Plan Referrals: Elyssa Gates MD [Primary Care Provider] - <Himanshu Rodriguez - Last Filed: 12/27/17 14:41> Date of Encounter: 12/27/17 - Assessment and plan (1) DVT prophylaxis Current Visit: Yes Status: Acute (2) COPD (chronic obstructive pulmonary disease) Current Visit: No Status: Chronic Qualifiers: COPD type: unspecified COPD Qualified Code(s): J44.9 - Chronic obstructive pulmonary disease, unspecified (3) Community acquired pneumonia Current Visit: Yes Status: Acute Qualifiers: Laterality: unspecified laterality Qualified Code(s): J18.9 - Pneumonia, unspecified organism (4) Tobacco dependence Current Visit: No Status: Chronic (5) Hypertension Current Visit: Yes Status: Chronic Qualifiers: Hypertension type: essential hypertension Qualified Code(s): I10 - Essential (primary) hypertension (6) Hyperlipidemia Current Visit: No Status: Chronic Qualifiers: Hyperlipidemia type: unspecified Qualified Code(s): E78.5 - Hyperlipidemia , unspecified (7) GERD (gastroesophageal reflux disease) Current Visit: No Status: Chronic Qualifiers: Esophagitis presence: esophagitis presence not specified Qualified Code(s) : K21.9 - Gastro-esophageal reflux disease without esophagitis (8) Rheumatoid arthritis Current Visit: Yes Status: Chronic Qualifiers: Rheumatoid arthritis location: unspecified site Rheumatoid factor presence : without rheumatoid factor Qualified Code(s): M06.00 - Rheumatoid arthritis without rheumatoid factor, unspecified site (9) Hypothyroidism Current Visit: No Status: Chronic Qualifiers: Hypothyroidism type: unspecified Qualified Code(s): E03.9 - Hypothyroidism , unspecified (10) Diabetes mellitus type 2 in obese Current Visit: No Status: Chronic (11) Diarrhea Current Visit: Yes Status: Acute Qualifiers: Diarrhea type: unspecified type Qualified Code(s): R19.7 - Diarrhea, unspecified (12) Adrenal insufficiency Current Visit: Yes Status: Acute (13) Acute respiratory failure with hypoxia Current Visit: Yes Status: Acute - Time Spent With Patient Total time spent is greater than 50% in coordination of care (as documented) at patient's floor/unit and/or counseling patient: - Constitutional Vitals: Temp Pulse Resp BP Pulse Ox 97.7 F 84 16 158/96 97 12/27/17 11:49 12/27/17 11:49 12/27/17 11:49 12/27/17 11:49 12/27/17 11:49 Internal Medicine: Result - Labs CBC & Chem 7: 12/27/17 05:16 12/27/17 05:16 Labs: Short CBC 12/27/17 Range/Units 05:16 WBC 14.1 H (4.3-11.1) K/mcL Hgb 9.8 L (11.5-15.4) g/dL Hct 30.6 L (35.3-44.9) % Plt Count 201 (140-400) K/mcL Neutrophils # 12.9 H (1.6-8.9) K/mcL BMP 12/27/17 05:16 Sodium 137 Potassium 3.7 Chloride 108 H Carbon Dioxide 21 L BUN 9 Creatinine 0.55 L Glucose 247 H Calcium 8.4 L Cardiac Enzymes 12/26/17 Range/Units 18:24 Troponin I < 0.03 (< 0.04) ng/mL - Impressions Impressions Chest X-Ray 12/26/17 05:53 IMPRESSION: Bilateral atelectasis or infiltrates with small pleural effusions. Follow up to resolution is suggested. D/ / 12/26/2017 13:42:23 Maria A Gruber MD / rosalinda Interpreting Provider: Maria A Gruber MD - Attending Attestation I examined this patient and my medical decision-making was reviewed with the Resident Physician Dr. Fierro. I agree with the documented findings, disposition and treatment plan as described except to the extent set forth below. Ms. Palm is a 47 year old female with a PMH of COPD, diabetes mellitus type 2 , GERD, hypertension, hyperlipidemia, RA, thyroid disease, and tobacco dependence who was transferred from [facility] due to sepsis. The patient reported fever, chills, headache, shortness of breath, productive cough, nausea , and diarrhea 15 per day for the past 2 days. Patient is immunosuppressed on prednisone and leflunomide for her rheumatoid arthritis. Gen: A, A, O x 3 Chest: Diminished BS b/l, mild to moderate wheezing Heart: S1S2+ RRR Abd: Soft, NT a/p 1. Sepsis with CAP and enteritis 2. Acute CAP - mostly bacterial cont empirical abx Cipro and Azithromycin 3. Acute enteritis- infectious Stool studies - Campylobacter +ve, EPEC Cont Cipro and Flagyl d/c IVF 4. Acute hypoxic resp failure 5. COPD exacerbation duoneb and o2 switched to PO steroids
[2017-12-27] MEDS: Azithromycin 500 MG in D5% in Water 250 ML IVPB SCH (12:30)
[2017-12-27] MEDS: Nicotine 14 MG PATCH.TD24 TD SCH (15:05)
[2017-12-28] MEDS: MetroNIDAZOLE 500 MG/100 ML 500 MG/100 ML BAG IVPB SCH ×2 (00:28→07:59)
[2017-12-28] MEDS: Ipratropium/Albuterol Neb 3 ML IH SCH ×4 (03:46→15:45)
[2017-12-28] MEDS: Acetaminophen 325 MG TABLET PO PRN (04:56)
[2017-12-28] MEDS: *HR* Heparin 5,000 UNIT/ML VIAL SQ SCH ×2 (05:09→14:09)
[2017-12-28 05:57] LABS: Basophils # 0.1 K/mcL (0.0-0.2); Basophils % 0.6 %; Eosinophils # 0.2 K/mcL (0.0-0.6); Eosinophils % 1.8 %; Hematocrit 31.1 % (35.3-44.9); Hemoglobin 9.9 g/dL (11.5-15.4); Immature Granulocytes % 1.2 % (0-4); Lymphocytes # 2.8 K/mcL (0.6-4.6); Lymphocytes % 23.6 %; Mean Corpuscular HGB Conc 31.8 g/dL (31.6-35.5); Mean Corpuscular Hemoglobin 28.6 pg (28.0-33.3); Mean Corpuscular Volume 89.9 fL (83.0-100.0); Mean Platelet Volume 11.1 fL (9.4-12.4); Monocytes # 0.7 K/mcL (0.0-1.3); Monocytes % 5.6 %; Neutrophils # 8.1 K/mcL (1.6-8.9); Platelet Count 217 K/mcL (140-400); Red Blood Count 3.46 M/mcL (3.82-4.97); Red Cell Distribution Width 17.8 % (11.5-14.5); Segmented Neutrophils % 67.2 %
[2017-12-28 06:18] LABS: BUN/Creatinine Ratio 16 (6-26); Blood Urea Nitrogen 9 mg/dL (6-20); Calcium 8.3 mg/dL (8.6-10.3); Carbon Dioxide 22 mEq/L (23-29); Chloride 109 mEq/L (98-107); Glucose 168 mg/dL (70-105); Osmolality,Calculated 291 (280-300); Potassium 2.8 mEq/L (3.5-5.1); Sodium 139 mEq/L (136-145); eGFR For African Americans > 60 (> 60); eGFR For Non-African Americans > 60 (> 60)
[2017-12-28] MEDS: amLODIPine 5 MG TABLET PO SCH (07:57)
[2017-12-28] MEDS: Nicotine 14 MG PATCH.TD24 TD SCH (07:58)
[2017-12-28] MEDS: Insulin LISPRO 300 UNITS/3 ML VIAL SQ SCH ×2 (07:59→12:17)
[2017-12-28] MEDS ORDERED: predniSONE 20 MG TABLET PO SCH (09:00)
[2017-12-28] MEDS ORDERED: 0.9 % Sodium Chloride 500 ML IVC ONE (09:21)
--- NOTE | 2017-12-28 09:53 | Discharge Summary ---
<Gilberto Fierro - Last Filed: 12/28/17 15:27> - NOTES TO OUTPATIENT PROVIDER Notes to Outpatient Provider: - finish 4 days of Ciprofloxacin 400mg PO. - Nicotine patches to help with smoking cessation. - Avoid uncooked meat, contaminated water and unpasterized milk Orders not resulted at time of discharge: Pending orders 12/26/17 05:56 Culture,Sputum with Gram Stain [RM] Routine 12/28/17 05:34 BMP [Basic Metabolic Panel] AM 0400 Magnesium Routine Date of Encounter: 12/28/17 Time of Encounter: 09:35 - Discharge Diagnosis (1) Community acquired pneumonia Priority: Secondary Status: Acute Qualifiers: Laterality: unspecified laterality Qualified Code(s): J18.9 - Pneumonia, unspecified organism (2) Diarrhea Priority: Primary Status: Acute Qualifiers: Diarrhea type: unspecified type Qualified Code(s): R19.7 - Diarrhea, unspecified (3) COPD (chronic obstructive pulmonary disease) Priority: Secondary Status: Chronic Qualifiers: COPD type: unspecified COPD Qualified Code(s): J44.9 - Chronic obstructive pulmonary disease, unspecified (4) Diabetes mellitus type 2 in obese Priority: Secondary Status: Chronic (5) Tobacco dependence Priority: Secondary Status: Chronic (6) Hypertension Priority: Secondary Status: Chronic Qualifiers: Hypertension type: essential hypertension Qualified Code(s): I10 - Essential (primary) hypertension (7) Hyperlipidemia Priority: Secondary Status: Chronic Qualifiers: Hyperlipidemia type: unspecified Qualified Code(s): E78.5 - Hyperlipidemia , unspecified (8) GERD (gastroesophageal reflux disease) Priority: Secondary Status: Chronic Qualifiers: Esophagitis presence: esophagitis presence not specified Qualified Code(s) : K21.9 - Gastro-esophageal reflux disease without esophagitis (9) Rheumatoid arthritis Priority: Secondary Status: Chronic Qualifiers: Rheumatoid arthritis location: unspecified site Rheumatoid factor presence : without rheumatoid factor Qualified Code(s): M06.00 - Rheumatoid arthritis without rheumatoid factor, unspecified site (10) Hypothyroidism Priority: Secondary Status: Chronic Qualifiers: Hypothyroidism type: unspecified Qualified Code(s): E03.9 - Hypothyroidism , unspecified (11) Adrenal insufficiency Priority: Secondary Status: Acute (12) DVT prophylaxis Priority: Secondary Status: Acute (13) Acute respiratory failure with hypoxia Priority: Secondary Status: Acute Hospital course: Ms. Palm is a 47 year old female with a PMHx of COPd (with no O2 at home) , DM2, GERD, HTN who was admitted to the hospital for multiple episodes of watery diarrhea *15 /day, fever, chills, COCHRAN, SOB, productive cough, and nausea, found to have sepsis with CAP and enteritis. Her GI panel was positive for Campylobactor and EPEC that led to her enteritis, and her acute CAP was bacterial. We treated her with Azithromycin 500mg q24h , Ciprofloxacin 400mg [id number] Flagyl 500mg q8h. We also gave her stress dosed steroids during the course of her hospital stay because of her Hx of being immunosuppressed on prednisone and leflunomide for her rheumatoid arthritis. Patient wheezing got better with every progressing day, her frequency of watery diarrhea lessened, she was transitioned from stress dose steroids to PO Prednisone on the 3rd day and was discharged. She was discharged on a total of 7 day course of Ciprofloxacin 400mg . I also gave her a patch of nicotine and counselled on smoking cessation. I told her to refrain from uncooked meat, avoid drinking contaminated water or unpasteurized milk. - Time Spent with Patient Total time spent providing and/or coordinating discharge services: - Discharge Medications Prescriptions: Ciprofloxacin Lactate [Ciprofloxacin] 400 mg PO DAILY 4 Days #4 tab Nicotine Patch [Nicoderm] 14 mg TD DAILY #10 patch.td24 Home Medications: Cetirizine HCl [All Day Allergy] 10 mg PO DAILY 08/25/17 [History] Leflunomide 20 mg PO DAILY 08/25/17 [History] Levothyroxine [Synthroid] 50 mcg PO 0630 08/25/17 [History] Omeprazole [PriLOSEC] 20 mg PO DAILY 08/25/17 [History] glipiZIDE [Glipizide] 10 mg PO DAILY 08/25/17 [History] Albuterol Sulfate [Proair Hfa] 1 puff IH TID PRN 08/31/17 [History] Budesonide/Formoterol 160/4.5 [Symbicort 160/4.5] 2 puff IH BID 10/06/17 [ History] Lactobacillus Acidophilus [Acidophilus] 1 cap PO DAILY 10/06/17 [History] Lisinopril/Hydrochlorothiazide [Zestoretic 20-25 mg Tablet] 1 tab PO DAILY PRN 10/06/17 [History] Lovastatin 40 mg PO HS 10/06/17 [History] amLODIPine [Norvasc] 5 mg PO DAILY PRN 10/06/17 [History] predniSONE [PredniSONE] 15 mg PO DAILY 12/26/17 [History] Ciprofloxacin Lactate [Ciprofloxacin] 400 mg PO DAILY 4 Days #4 tab 12/28/17 [Rx ] Nicotine Patch [Nicoderm] 14 mg TD DAILY #10 patch.td24 12/28/17 [Rx] Allergies/Adverse Reactions: 3 Allergy/AdvReac Type Severity Reaction Status Date / Time golimumab [From Simponi ARIA] Allergy Hives Verified 12/26/17 14:30 Oxycodone [From Percocet] AdvReac Itching Verified 12/26/17 14:30 tramadol AdvReac Hallucinati Verified 12/26/17 14:30 ng Date of admission: 12/26/17 06:45 Primary care physician: Elyssa Gates Consults: 12/26/17 05:49 Consult to Nurse Navigator [CONS] Routine Comment: 12/26/17 05:53 Consult to Occupational Therapy [CONS] Routine Comment: Evaluate, develop and implement POC Reason for Consult: weakness Does patient have active BEDREST order?: No Is patient medically & hemodynamically stable?: Yes Patient assessed for mobility or mobilized this visit?: No Consult to Physical Therapy [CONS] Routine Comment: Evaluate, develop and implement POC Reason for Consult: weakness Does patient have active BEDREST order?: No Is patient medically & hemodynamically stable?: Yes Patient assessed for mobility or mobilized this visit?: No - Constitutional Vitals: Temp Pulse Resp BP Pulse Ox 97.8 F 99 16 132/77 93 12/28/17 07:25 12/28/17 07:25 12/28/17 08:08 12/28/17 07:25 12/28/17 08:13 General appearance: Present: cooperative, mild distress, A&O X 3, pleasant, answers questions appropriately - Head Head exam: Present: atraumatic, normal inspection, normocephalic - Respiratory Additional comments: CTAB, no rales, ronchi or stridor - Cardiovascular Additional comments: RRR, no gallops, murmurs or rubs - GI/Abdominal Additional comments: soft, non-distended, normal bowel sounds , no guarding or rebound tenderness. - Extremities Exam Additional comments: ROM appropriate for her age, no pedal edema, pulses symmetrical bilaterally - Patient Status Disposition: Home, Self-Care Condition: Fair Functional capacity at discharge: independent ambulation Overall status at discharge: patient is progressing back to baseline - Discharge Instructions Instructions: Ciprofloxacin (By mouth), Acute Respiratory Distress Syndrome (DC ), Hypothyroidism (DC), Diabetes Mellitus Type 2 in Adults (DC), Chronic Obstructive Pulmonary Disease (DC), Chronic Hypertension (DC), Pneumonia (DC), Cigarette Smoking and Your Health, High Climber (GEN) Follow Up With: Maribel Fu CNP [Advanced Practice Nurse] - 01/01/18 1:00 pm - Diet and Activity Activity: resume usual activities as tolerated Diet: diabetic diet <Himanshu Rodriguez - Last Filed: 12/28/17 17:47> Orders not resulted at time of discharge: Pending orders 12/28/17 14:30 Potassium Timed Date of Encounter: 12/28/17 - Discharge Diagnosis (1) DVT prophylaxis Status: Acute (2) COPD (chronic obstructive pulmonary disease) Status: Chronic Qualifiers: COPD type: unspecified COPD Qualified Code(s): J44.9 - Chronic obstructive pulmonary disease, unspecified (3) Community acquired pneumonia Status: Acute Qualifiers: Laterality: unspecified laterality Qualified Code(s): J18.9 - Pneumonia, unspecified organism (4) Tobacco dependence Status: Chronic (5) Hypertension Status: Chronic Qualifiers: Hypertension type: essential hypertension Qualified Code(s): I10 - Essential (primary) hypertension (6) Hyperlipidemia Status: Chronic Qualifiers: Hyperlipidemia type: unspecified Qualified Code(s): E78.5 - Hyperlipidemia , unspecified (7) GERD (gastroesophageal reflux disease) Status: Chronic Qualifiers: Esophagitis presence: esophagitis presence not specified Qualified Code(s) : K21.9 - Gastro-esophageal reflux disease without esophagitis (8) Rheumatoid arthritis Status: Chronic Qualifiers: Rheumatoid arthritis location: unspecified site Rheumatoid factor presence : without rheumatoid factor Qualified Code(s): M06.00 - Rheumatoid arthritis without rheumatoid factor, unspecified site (9) Hypothyroidism Status: Chronic Qualifiers: Hypothyroidism type: unspecified Qualified Code(s): E03.9 - Hypothyroidism , unspecified (10) Diabetes mellitus type 2 in obese Status: Chronic (11) Diarrhea Status: Acute Qualifiers: Diarrhea type: unspecified type Qualified Code(s): R19.7 - Diarrhea, unspecified (12) Adrenal insufficiency Status: Acute (13) Acute respiratory failure with hypoxia Status: Acute Hospital course: Ms. Palm is a 47 year old female - Time Spent with Patient Total time spent providing and/or coordinating discharge services: Date of admission: 12/26/17 06:45 Primary care physician: Elyssa Gates Consults: 12/26/17 05:49 Consult to Nurse Navigator [CONS] Routine Comment: 12/26/17 05:53 Consult to Physical Therapy [CONS] Routine Comment: Evaluate, develop and implement POC Reason for Consult: weakness Does patient have active BEDREST order?: No Is patient medically & hemodynamically stable?: Yes Patient assessed for mobility or mobilized this visit?: No - Constitutional Vitals: Temp Pulse Resp BP Pulse Ox 98.6 F 91 16 121/70 93 12/28/17 11:46 12/28/17 11:46 12/28/17 11:46 12/28/17 11:46 12/28/17 11:46 - Attending Attestation I examined this patient and my medical decision-making was reviewed with the Resident Physician Dr. Fierro. I agree with the documented findings, disposition and treatment plan as described except to the extent set forth below. Ms. Palm is a 47 year old female with a PMH of COPD, diabetes mellitus type 2 , GERD, hypertension, hyperlipidemia, RA, thyroid disease, and tobacco dependence who was transferred from [place] ED due to sepsis. The patient reported fever, chills, headache, shortness of breath, productive cough, nausea , and diarrhea 15 per day for the past 2 days. Patient is immunosuppressed on prednisone and leflunomide for her rheumatoid arthritis. Gen: A, A, O x 3 Chest: Diminished BS b/l, mild to moderate wheezing Heart: S1S2+ RRR Abd: Soft, NT a/p 1. Sepsis with CAP and enteritis 2. Acute CAP - mostly bacterial cont empirical abx Cipro and Azithromycin 3. Acute enteritis- infectious Stool studies - Campylobacter +ve, EPEC Will d.c home with Cipro for total 7 days course 4. Acute hypoxic resp failure 5. COPD exacerbation duoneb Home o2 eval done.. no need of O2 to go home stable to d/c home today
[2017-12-28 09:58] LABS: Magnesium 1.5 mg/dL (1.6-2.6)
[2017-12-28 11:50] VITALS: BP 121/70
[2017-12-28] MEDS: Azithromycin 500 MG in D5% in Water 250 ML IVPB SCH (12:15)
== END 2017-12-28 16:24 | disposition home or self-care (01) | DRG 720 ==
LOC: 2NENU → SUATTDRO 06:45
PROVIDERS: ADMIT Family Medicine; ATTEND Family Medicine

== ENCOUNTER 2018-11-21 12:04 | Inpatient (IN) ==
[2018-11-21] MEDS ORDERED: Albuterol 2.5 MG/3 ML NEBULIZER IH STA (12:09)
[2018-11-21] MEDS ORDERED: Albuterol 2.5 MG/3 ML NEBULIZER ONE (12:10)
[2018-11-21] MEDS ORDERED: predniSONE 20 MG TABLET PO STA (12:10)
[2018-11-21] MEDS ORDERED: methylPREDNISolone 125 MG/2 ML VIAL IVP ONE (12:12)
[2018-11-21] MEDS: EPINEPHrine 1 MG/ML VIAL IM ONE ×2 (12:16→12:28)
[2018-11-21] MEDS ORDERED: Famotidine 20 MG/2 ML VIAL IVP ONE (12:32)
[2018-11-21] MEDS ORDERED: 0.9 % Sodium Chloride 1,000 ML ONE (12:32)
--- NOTE | 2018-11-21 12:52 | Emergency Department Note ---
Disposition Clinical Impression: Allergic reaction Qualifiers: Encounter type: initial encounter Qualified Code(s): T78.40XA - Allergy, unspecified, initial encounter Acute respiratory failure Qualifiers: Respiratory failure complication: hypoxia Qualified Code(s): J96.01 - Acute respiratory failure with hypoxia Disposition: Admitted As Inpatient Condition: Undetermined Referrals: NONE,PCP [Primary Care Provider] - Forms: ED Satisfaction Letter Time of Disposition: 13:26 Allergic Reaction HPI - General Chief complaint: ED Allergic Reaction Stated complaint: allergic reaction Time Seen by Provider: 11/21/18 12:09 Source: patient Mode of arrival: ambulatory Limitations: physical limitation Nursing Notes Reviewed: Yes Vital Signs Reviewed: Yes - History of Present Illness HPI Narrative: 48-year-old female history of rheumatoid arthritis arrives to the emergency Department acute respiratory distress. The patient was receiving an infusion of a rinse he and begin expressing shortness of breath. The patient has a history of allergic reaction to biologic's. The patient arrives to the emergency department mottled and in moderate to severe respiratory distress. The patient was immediately given 0.3 mg of IM epinephrine, and the patient received 25 mg by mouth Benadryl just prior to arrival as well as 600 mg of Tylenol. The patient was quickly placed on BiPAP secondary to worsening mental status. The patient had one 25 mg IV site and Medrol administered. The patient denies any chest complaint. She denies any other complaints at this time. The in the room states this is identical to previous episodes of allergic reaction in the past. - Related Data Home Medications Medication Instructions Recorded Confirmed Alogliptin Benzoate [Alogliptin] 25 mg PO DAILY 11/02/18 11/02/18 Atorvastatin Calcium [Lipitor] 80 mg PO HS 11/02/18 11/02/18 Budesonide/Formoterol 160/4.5 1 puff IH BIDR 11/02/18 11/02/18 [Symbicort 160/4.5] Cetirizine HCl [24Hour Allergy] 10 mg PO DAILY 11/02/18 11/02/18 Dapagliflozin Propanediol [Farxiga] 10 mg PO DAILY 11/02/18 11/02/18 Duloxetine HCl [Cymbalta] 60 mg PO DAILY 11/02/18 11/02/18 Estradiol [Estrace] 1 mg PO DAILY 11/02/18 11/02/18 Iron Polysaccharide Complex [Pro 180 mg PO DAILY 11/02/18 11/02/18 Fe] Levothyroxine [Synthroid] 50 mcg PO 0630 11/02/18 11/02/18 Lisinopril [Zestril] 20 mg PO DAILY 11/02/18 11/02/18 Metoprolol [Lopressor] 50 mg PO BID 11/02/18 11/02/18 Omeprazole [PriLOSEC] 20 mg PO DAILY 11/02/18 11/02/18 Trazodone HCl 50 mg PO HS 11/02/18 11/02/18 glipiZIDE [Glipizide] 10 mg PO DAILY 11/02/18 11/02/18 predniSONE [PredniSONE] 5 mg PO DAILY 11/02/18 11/02/18 Allergies Allergy/AdvReac Type Severity Reaction Status Date / Time abatacept [From Orencia] Allergy Difficulty Verified 11/21/18 12:25 Breathing golimumab [From Simponi ARIA] Allergy Hypotension Verified 11/02/18 11:20 adalimumab [From Humira] AdvReac Rash Verified 11/02/18 11:20 oxycodone [From Percocet] AdvReac Itching Verified 01/27/18 10:49 tofacitinib [From Xeljanz] AdvReac Hypertensio Verified 11/02/18 11:20 n tramadol AdvReac Hallucinati Verified 01/27/18 10:49 ng Past Medical History - Past Medical History Medical history: Reports: COPD, hyperlipidemia, hypertension, RA, thyroid disease Surgical history: Reports: cholecystectomy Psychiatric history: Reports: anxiety, depression 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 - Social History Smoking Status: Current every day smoker Smokeless Tobacco Status: No Alcohol use: Reports: none Drug use: Reports: none Physical Exam - General Limitations: physical limitation General appearance: alert, anxious, in distress Course Vital Signs Temperature 98.1 F 11/21/18 12:09 Pulse Rate 117 11/21/18 12:09 Respiratory Rate 26 11/21/18 12:09 Blood Pressure 155/116 11/21/18 12:09 O2 Sat by Pulse Oximetry 92 11/21/18 12:09 Temperature 98.1 F 11/21/18 12:09 Pulse Rate 98 11/21/18 12:34 Respiratory Rate 27 11/21/18 12:34 Blood Pressure 115/74 11/21/18 12:34 O2 Sat by Pulse Oximetry 96 11/21/18 12:34 Oxygen Delivery Oxygen Delivery Bipap Allergic Reaction - MDM Narrative Medical decision making narrative: Patient's workup demonstrates findings consistent with an allergic reaction. The patient was quickly placed on BiPAP and given 2 subsequent doses of epinephrine given the lack of improvement. The patient is now resting comfortably on BiPAP. A blood gas demonstrated mild hypercarbia at 50. The patient denies any other complaints at this time. Accepted to thre ICU by Dr. Cee. - Radiology Data Radiology results reviewed: Yes I reviewed the patient's radiology results.
--- NOTE | 2018-11-21 13:32 | Emergency Department Note ---
Disposition Clinical Impression: Allergic reaction Qualifiers: Encounter type: initial encounter Qualified Code(s): T78.40XA - Allergy, unspecified, initial encounter Acute respiratory failure Qualifiers: Respiratory failure complication: hypoxia Qualified Code(s): J96.01 - Acute respiratory failure with hypoxia Anaphylaxis Qualifiers: Encounter type: initial encounter Qualified Code(s): T78.2XXA - Anaphylactic shock, unspecified, initial encounter Disposition: Admitted As Inpatient Condition: Undetermined Referrals: NONE,PCP [Non-Partnered Physician] - Forms: ED Satisfaction Letter Time of Disposition: 13:26 Allergic Reaction HPI - General Chief complaint: ED Allergic Reaction Stated complaint: allergic reaction Time Seen by Provider: 11/21/18 12:09 Source: patient Mode of arrival: ambulatory Limitations: physical limitation - Related Data Home Medications Medication Instructions Recorded Confirmed Alogliptin Benzoate [Alogliptin] 25 mg PO DAILY 11/02/18 11/02/18 Atorvastatin Calcium [Lipitor] 80 mg PO 11/02/18 11/02/18 Budesonide/Formoterol 160/4.5 1 puff IH BIDR 11/02/18 11/02/18 [Symbicort 160/4.5] Cetirizine HCl [24Hour Allergy] 10 mg PO DAILY 11/02/18 11/02/18 Dapagliflozin Propanediol [Farxiga] 10 mg PO DAILY 11/02/18 11/02/18 Duloxetine HCl [Cymbalta] 60 mg PO DAILY 11/02/18 11/02/18 Estradiol [Estrace] 1 mg PO DAILY 11/02/18 11/02/18 Iron Polysaccharide Complex [Pro 180 mg PO DAILY 11/02/18 11/02/18 Fe] Levothyroxine [Synthroid] 50 mcg PO 0630 11/02/18 11/02/18 Lisinopril [Zestril] 20 mg PO DAILY 11/02/18 11/02/18 Metoprolol [Lopressor] 50 mg PO BID 11/02/18 11/02/18 Omeprazole [PriLOSEC] 20 mg PO DAILY 11/02/18 11/02/18 Trazodone HCl 50 mg PO 11/02/18 11/02/18 glipiZIDE [Glipizide] 10 mg PO DAILY 11/02/18 11/02/18 predniSONE [PredniSONE] 5 mg PO DAILY 11/02/18 11/02/18 Allergies Allergy/AdvReac Type Severity Reaction Status Date / Time abatacept [From Orencia] Allergy Difficulty Verified 11/21/18 12:25 Breathing golimumab [From Simponi ARIA] Allergy Hypotension Verified 11/02/18 11:20 adalimumab [From Humira] AdvReac Rash Verified 11/02/18 11:20 oxycodone [From Percocet] AdvReac Itching Verified 01/27/18 10:49 tofacitinib [From Xeljanz] AdvReac Hypertensio Verified 11/02/18 11:20 n tramadol AdvReac Hallucinati Verified 01/27/18 10:49 ng Past Medical History - Past Medical History Medical history: Reports: COPD, hyperlipidemia, hypertension, RA, thyroid d isease Surgical history: Reports: cholecystectomy Psychiatric history: Reports: anxiety, depression 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 - Social History Smoking Status: Current every day smoker Smokeless Tobacco Status: No Alcohol use: Reports: none Drug use: Reports: none Physical Exam - General Limitations: physical limitation General appearance: alert, anxious, in distress Course Vital Signs Temperature 98.1 F 11/21/18 12:09 Pulse Rate 117 11/21/18 12:09 Respiratory Rate 26 11/21/18 12:09 Blood Pressure 155/116 11/21/18 12:09 O2 Sat by Pulse Oximetry 92 11/21/18 12:09 Temperature 98.1 F 11/21/18 12:09 Pulse Rate 98 11/21/18 12:34 Respiratory Rate 27 11/21/18 12:34 Blood Pressure 115/74 11/21/18 12:34 O2 Sat by Pulse Oximetry 96 11/21/18 12:34 Oxygen Delivery Oxygen Delivery Bipap Attestation Statement - Attestation Attestation: I examined this patient and my medical decision-making was reviewed with the Resident Physician. I agree with the documented findings, disposition and treatment plan as described except to the extent set forth below. Impression clinic where she was receiving an injection for rheumatoid arthritis. Became short of breath with wheezing. Lips, tongue and uvula appear normal. No stridor. She does have wheezing and prolonged expiratory phase. No cutaneous findings. No vomiting. Was given 2 doses of intramuscular epinephrine as well as albuterol. Had Benadryl prior to arrival, Steroids here. He will be admitted to the ICU for anaphylaxis. Critical care time: I was directly and primarily involved in the care of this patient for 35 minutes excluding procedures. I was present for the resident's EKG interpretation.
[2018-11-21 13:43] LABS: Basophils # 0.1 K/mcL (0.0-0.2); Basophils % 0.4 %; Eosinophils # 0.3 K/mcL (0.0-0.6); Eosinophils % 1.1 %; Hemoglobin 14.6 g/dL (11.5-15.4); Immature Granulocytes % 2.3 % (0-4); Lymphocytes # 4.4 K/mcL (0.6-4.6); Lymphocytes % 18.1 %; Mean Corpuscular HGB Conc 30.4 g/dL (31.6-35.5); Mean Corpuscular Hemoglobin 29.1 pg (28.0-33.3); Mean Corpuscular Volume 95.8 fL (83.0-100.0); Mean Platelet Volume 10.8 fL (9.4-12.4); Monocytes # 0.7 K/mcL (0.0-1.3); Monocytes % 2.9 %; Neutrophils # 18.4 K/mcL (1.6-8.9); Platelet Count 339 K/mcL (140-400); Red Blood Count 5.01 M/mcL (3.82-4.97); Red Cell Distribution Width 15.3 % (11.5-14.5); Segmented Neutrophils % 75.2 %; White Blood Count 24.4 K/mcL (4.3-11.1)
--- NOTE | 2018-11-21 13:44 | Internal Med History&Physical ---
<Mehul Amador - Last Filed: 11/21/18 16:23> Date of Encounter: 11/21/18 Time of Encounter: 13:40 Internal Medicine - H&P: HPI Chief complaint: Shortness of Breath Admitted From: Emergency Dept Plans for Post Hospital Care: Home History of present illness: Ms. Palm is a 48 year old female with past medical history significant for rheumatoid arthritis, coronary artery disease status post 5 stents, COPD not on home oxygen, diabetes mellitus, hypertension, hyperlipidemia, hypothyroidism who presents to the ED with allergic reaction after infusion at rheumatologic clinic. 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 She also noted sensation of her throat closing. She otherwise denied any itching, hives, rash, facial swelling, feelings of dizziness or lightheadedness, nausea, or abdominal pain. Per patient's , this has happened 2 other times in the past. Infusion was stopped, and patient was taken to the ER. She denied any headache, vision changes, chest pain, palpitations, nausea, vomiting, diarrhea. - Initial vitals in the ED: T = 98.1, HR = 117, RR = 26, BP = 155/116, O2 = 92% on room air - On initial presentation, patient had worsening mental status and was immediately placed on BiPAP. Noted to be anxious secondary to respiratory distress. Does not have any visual swelling of the lips, tongue. No visible rash or hives. On exam, patient had mild expiratory wheezes at time of my examination. - Lab work: Leukocytosis = 24.4. Blood glucose = 297. Otherwise benign. - Chest x-ray (11/21/18): No acute cardiopulmonary disease - Patient has received intramuscular epinephrine, albuterol, Pepcid, Solu- Medrol 125 mg, prednisone by mouth 60 mg, Tylenol thus far. Patient was add itionally placed on BiPAP. She will be admitted to the ICU for further management of anaphylaxis. Past Med Surg Social Fam HX - Past Medical History Attestation: Yes The following information was validated with the patient. Source: patient, obtained from family Medical history: COPD, hyperlipidemia, hypertension, RA, thyroid disease Additional medical history: benign nodules in lungs, chronic diarrhea Psychiatric history: anxiety, depression - Past Surgical History Surgical History: cholecystectomy Additional surgical history: tubal ligation, bone marrow biopsy - Social History Smoking Status: Current every day smoker Smokeless Tobacco Status: No Alcohol use: none Drug use: none - Family History Mother Hx Family Respiratory Disorders: Yes (COPD) Internal Medicine - H&P: Meds Alogliptin Benzoate [Alogliptin] 25 mg PO DAILY 11/02/18 [History] Atorvastatin Calcium [Lipitor] 80 mg PO HS 11/02/18 [History] Budesonide/Formoterol 160/4.5 [Symbicort 160/4.5] 1 puff IH BIDR 11/02/18 [History] Cetirizine HCl [24Hour Allergy] 10 mg PO DAILY 11/02/18 [History] Dapagliflozin Propanediol [Farxiga] 10 mg PO DAILY 11/02/18 [History] Duloxetine HCl [Cymbalta] 60 mg PO DAILY 11/02/18 [History] Estradiol [Estrace] 1 mg PO DAILY 11/02/18 [History] Iron Polysaccharide Complex [Pro Fe] 180 mg PO DAILY 11/02/18 [History] Levothyroxine [Synthroid] 50 mcg PO 0630 11/02/18 [History] Lisinopril [Zestril] 20 mg PO DAILY 11/02/18 [History] Metoprolol [Lopressor] 50 mg PO BID 11/02/18 [History] Omeprazole [PriLOSEC] 20 mg PO DAILY 11/02/18 [History] Trazodone HCl 50 mg PO HS 11/02/18 [History] glipiZIDE [Glipizide] 10 mg PO DAILY 11/02/18 [History] predniSONE [PredniSONE] 5 mg PO DAILY 11/02/18 [History] Allergy/AdvReac Type Severity Reaction Status Date / Time abatacept [From Orencia] Allergy Difficulty Verified 11/21/18 12:25 Breathing golimumab [From Simponi ARIA] Allergy Hypotension Verified 11/02/18 11:20 adalimumab [From Humira] AdvReac Rash Verified 11/02/18 11:20 oxycodone [From Percocet] AdvReac Itching Verified 01/27/18 10:49 tofacitinib [From Xeljanz] AdvReac Hypertensio Verified 11/02/18 11:20 n tramadol AdvReac Hallucinati Verified 01/27/18 10:49 ng All Systems PM: A 10-system review of systems was performed and is negative for pertinent findings except as documented above in the HPI. - Constitutional Constitutional: fatigue, lethargy, no malaise - EENT Eyes: no blurry vision, no change in vision Nose, mouth and throat: no dry mouth, no facial pain, no hoarseness, no lip swelling, no neck pain, no sore throat, no throat swelling, no tongue swelling - Cardiovascular Cardiovascular ROS IM: dyspnea, dyspnea on exertion, no chest pain, no edema, no lightheadedness - Respiratory Respiratory: cough, dyspnea, dyspnea on exertion, wheezing, no hemoptysis, no pain on inspiration - Gastrointestinal Gastrointestinal: no abdominal pain, no diarrhea, no nausea, no vomiting - Musculoskeletal Musculoskeletal ROS IM: no back pain, no myalgias - Integumentary Integumentary IM: no erythema, no pruritus, no rash - Neurological Neurological ROS: no confusion, no dizziness, no headache(s), no tingling - Psychiatric Psychiatric: no behavioral changes - Endocrine Endocrine IM: no fatigue, no flushing - Allergic/Immunologic Allergic/Immunologic: wheezing, no tongue swelling, no throat swelling, no itchy eyes, no seasonal rhinorrhea, no uticaria, no GI upset with certain foods, no lip swelling - Constitutional Vitals: Temp Pulse Resp BP Pulse Ox 98.1 F 93 24 133/78 100 11/21/18 12:09 11/21/18 13:34 11/21/18 13:34 11/21/18 13:34 11/21/18 13:34 General appearance: Present: cooperative, mild distress, A&O X 3, pleasant, answers questions appropriately Exam: This is a 48-year-old female who was in the examined at bedside accompanied by . - On exam, noted to be mildly respiratory distress, currently on BiPAP. Noted mild wheezes bilaterally status post of utilizing albuterol treatment, 125 mg Solu-Medrol, 60 mg by mouth prednisone. - No lip swelling or tongue swelling noted. No rash, hives noted. No abdominal pain. - Head Head exam: Present: atraumatic, normal inspection, normocephalic - Eye Eye exam: Present: EOMI - ENT ENT exam: Present: mucous membranes moist, normal oropharynx - Neck Neck exam general surgery: Present: full ROM, supple - Respiratory Respiratory exam: Present: respiratory distress (Mild respiratory distress, on BiPAP), wheezes. Absent: accessory muscle use, CTAB, prolonged expiratory phase, rales, rhonchi, stridor (Mild wheezes bilaterally) - Cardiovascular Cardiovascular exam: Present: RRR, +S1, +S2 - GI/Abdominal GI/Abdominal exam: Present: normal bowel sounds, soft. Absent: distended, firm, guarding, rebound, rigid - Extremities Exam Extremities exam: Present: normal capillary refill, normal inspection, warm, radial pulses palpable and symmetrical. Absent: mottling, pedal edema, tenderness - Neurological Exam Neurological exam: Present: alert, oriented X3, no focal deficits - Psychiatric Psychiatric exam: Present: normal affect, normal mood - Skin Skin exam: Present: normal color, warm. Absent: diaphoretic, mottled, rash, urticaria Internal Med - H&P Results - Labs CBC & Chem 7: 11/21/18 13:31 11/21/18 13:31 - Impressions ITS Impressions Chest X-Ray 11/21/18 12:14 IMPRESSION: No acute cardiopulmonary disease. D/ / Whit Talley MD / Whit Talley MD Interpreting Provider: Whit Talley MD - Assessment and Plan (1) Anaphylaxis Current Visit: Yes Status: Acute Assessment and plan: Ms. aPlm is a 48 year old female with past medical history significant for rheumatoid arthritis, coronary artery disease status post 5 stents, COPD not on home oxygen, diabetes mellitus, hypertension, hyperlipidemia, hypothyroidism who presents to the ED with allergic reaction after infusion at rheumatologic clinic. - Patient was receiving infusion with new medication (Orencia) for rheumatoid arthritis today; noticed symptoms after only 10 minutes and infusion was stopped - Associated symptoms included shortness of breath, sensation of throat closing, elevated blood pressure. - Patient was noted to have worsening mental status on presentation ED - Patient was placed on BiPAP. On exam, patient had expiratory wheezes bilaterally. However she did not have any skin changes, facial swelling, lip swelling, rash, hives or any other pertinent findings. - Received intramuscular epinephrine, albuterol, Pepcid, Solu-Medrol 125 mg, prednisone by mouth [address] soft tissue neck (11/21/18): Laryngeal and pharyngeal edema => recommended airway monitoring her protection PLAN: Patient presents with anaphylaxis after infusion with new medication for rheumatoid arthritis. History of similar symptoms in the past. - Continue ICU care. - Continue monitoring airway. - Monitor vitals and blood pressure. Monitor oxygen saturation. - Supplemental oxygen as needed to keep O2 saturation greater than 92% - IM epinephrine as needed for worsening symptoms; may need to consider continuous epinephrine drip with worsening symptoms - Given soft tissue neck edema, we will consult ENT - BiPAP as needed with respiratory difficulty - DuoNeb's as needed - Solu-Medrol 40 mg every 12 hours - Pepcid 20 mg every 12 hours Qualifiers: Encounter type: subsequent encounter Qualified Code(s): T78.2XXD - Anaphylactic shock, unspecified, subsequent encounter (2) COPD (chronic obstructive pulmonary disease) Current Visit: No Status: Chronic Assessment and plan: History of COPD PLAN: - Continue monitoring of O2 saturation - Supplemental oxygen as needed; titrate to keep O2 saturation greater than 92 % - Solu-Medrol 40 mg every 12 hours - Duonebs every 6 hours Qualifiers: COPD type: unspecified COPD Qualified Code(s): J44.9 - Chronic obstructive pulmonary disease, unspecified (3) Diabetes mellitus type 2 in obese Current Visit: No Status: Chronic Assessment and plan: Diabetes mellitus type 2 on oral medications PLAN: - Low dose sliding scale - Accuchecks q6h (4) Hypertension Current Visit: No Status: Chronic Assessment and plan: PLAN: - Continue home hypertension medications were reconciled Qualifiers: Hypertension type: unspecified Qualified Code(s): I10 - Essential (primary) hypertension (5) Hyperlipidemia Current Visit: No Status: Chronic Assessment and plan: PLAN: - Continue home medications and reconciled Qualifiers: Hyperlipidemia type: unspecified Qualified Code(s): E78.5 - Hyperlipidemia, unspecified (6) Hypothyroidism Current Visit: No Status: Chronic Assessment and plan: PLAN: - Continue home medications and reconciled Qualifiers: Hypothyroidism type: unspecified Qualified Code(s): E03.9 - Hypothyroidism, unspecified (7) Rheumatoid arthritis Current Visit: No Status: Chronic Assessment and plan: History of rheumatoid arthritis - Presents after allergic reaction after receiving new IV infusion in rheumatology clinic PLAN: - Cont to monitor for now Qualifiers: Rheumatoid arthritis location: unspecified site Rheumatoid factor presence: without rheumatoid factor Qualified Code(s): M06.00 - Rheumatoid arthritis without rheumatoid factor, unspecified site (8) DVT prophylaxis Current Visit: No Status: Acute Assessment and plan: Heparin subcutaneous twice a day - Time Spent With Patient Total time spent is greater than 50% in coordination of care (as documented) at patient's floor/unit and/or counseling patient: 25 - 35 minutes <Amy Cee - Last Filed: 11/21/18 17:29> Date of Encounter: 11/21/18 Internal Medicine - H&P: HPI History of present illness: Ms. Palm is a 48 year old female All Systems PM: A 10-system review of systems was performed and is negative for pertinent findings except as documented above in the HPI. - Constitutional Vitals: Temp Pulse Resp BP Pulse Ox 97.1 F L 98 24 118/80 99 11/21/18 14:21 11/21/18 16:00 11/21/18 16:00 11/21/18 16:00 11/21/18 16:00 Internal Med - H&P Results - Labs CBC & Chem 7: 11/21/18 13:31 11/21/18 13:31 Labs: Short CBC 11/21/18 Range/Units 13:31 WBC 24.4 H (4.3-11.1) K/mcL Hgb 14.6 (11.5-15.4) g/dL Hct 48.0 H (35.3-44.9) % Plt Count 339 (140-400) K/mcL Neutrophils # 18.4 H (1.6-8.9) K/mcL BMP 11/21/18 13:31 Sodium 137 Potassium 3.7 Chloride 106 Carbon Dioxide 21 L BUN 8 Creatinine 0.59 L Glucose 297 H Calcium 8.3 L - Impressions ITS Impressions Chest X-Ray 11/21/18 12:14 IMPRESSION: No acute cardiopulmonary disease. D/ / Whit Talley MD / Whit Talley MD Interpreting Provider: Whit Talley MD Soft Tissue Neck CT 11/21/18 14:13 IMPRESSION: Laryngeal and pharyngeal edema. RECOMMENDATIONS: Airway monitoring or protection. D/ / 11/21/2018 15:38:05 John Shi MD / aliza Interpreting Provider: John Shi MD - Time Spent With Patient Total time spent is greater than 50% in coordination of care (as documented) at patient's floor/unit and/or counseling patient: - Attending Attestation I examined this patient and my medical decision-making was reviewed with the Resident Physician. I agree with the documented findings, disposition and treatment plan as described except to the extent set forth below.
[2018-11-21] MEDS ORDERED: Naloxone 0.4 MG/ML INJ IVP PRN (14:08)
[2018-11-21 14:19] LABS: BUN/Creatinine Ratio 14 (6-26); Blood Urea Nitrogen 8 mg/dL (6-20); Calcium 8.3 mg/dL (8.6-10.3); Carbon Dioxide 21 mEq/L (23-29); Chloride 106 mEq/L (98-107); Glucose 297 mg/dL (70-105); Osmolality,Calculated 293 (280-300); Potassium 3.7 mEq/L (3.5-5.1); Sodium 137 mEq/L (136-145); eGFR For African Americans > 60 (> 60); eGFR For Non-African Americans > 60 (> 60)
[2018-11-21] MEDS ORDERED: Ipratropium/Albuterol Neb 3 ML IH PRN (16:36)
[2018-11-21] MEDS ORDERED: D5% in Water 1,000 ML IVC PRN (16:41)
[2018-11-21] MEDS ORDERED: Dextrose Gel 15 GM/37.5 ML TUBE PO PRN ×2 (16:41)
[2018-11-21] MEDS ORDERED: *HR* Dextrose 50 % in Water (Syg) 50 ML SYRINGE IVP PRN (16:41)
--- NOTE | 2018-11-21 16:47 | ENT - Consult Note ---
Date of Encounter: 11/21/18 Time of Encounter: 16:30 Assessment and Plan (1) Allergic reaction caused by a drug Current Visit: Yes Status: Acute White female with underlying right vocal cord lesion not causing any issues today with anaphylaxis believed to be secondary to administration of orencia for her arthritis at approximately 11:30 today shortly after developed sensation of something in her throat possible laryngeal edema she is breathing comfortably presently 5 hours later and has no evidence of swelling laryngeal edema and she has had previous history of another drug causing similar reaction to this not absolutely certain she does not have laryngeal edema with this but the only way to document that would be reviewer at the time of the infusions to see if she actually developed some type of swelling otherwise pulmonary cause of breathing would be the most likely issue Qualifiers: Encounter type: initial encounter Qualified Code(s): T78.40XA - Allergy, unspecified, initial encounter History of Present Illness History of present illness: 48-year-old white female with recent history several weeks ago of a laryngoscopy with apparently a vocal cord resection IV polypectomy on the right side she has persistent problems with her voice and a 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 the patient has arthritis was treated with a medication in the past with allergic reaction today she got her and see and shortly after within 10 minutes had some numbness and shortness of breath she was put on CPAP which seemed to help her breathing seeing her 5 hours after the incident she is having no issues does not feel like there is anything in the throat at this time or any problems with breathing never had any problems with swallowing Past Med Surg Social Fam HX - Past Medical History Medical history: COPD, hyperlipidemia, hypertension, RA, thyroid disease Additional medical history: benign nodules in lungs, chronic diarrhea, benign nodule in throat Psychiatric history: anxiety, depression - Past Surgical History Surgical History: cholecystectomy Additional surgical history: tubal ligation, bone marrow biopsy - Social History Smoking Status: Current every day smoker Packs per day: 1 Smokeless Tobacco Status: No Alcohol use: none Drug use: none - Family History Mother Hx Family Respiratory Disorders: Yes (COPD) Medications and Allergies Alogliptin Benzoate [Alogliptin] 25 mg PO DAILY 11/02/18 [History] Atorvastatin Calcium [Lipitor] 80 mg PO HS 11/02/18 [History] Budesonide/Formoterol 160/4.5 [Symbicort 160/4.5] 1 puff IH BIDR 11/02/18 [History] Cetirizine HCl [24Hour Allergy] 10 mg PO DAILY 11/02/18 [History] Dapagliflozin Propanediol [Farxiga] 10 mg PO DAILY 11/02/18 [History] Duloxetine HCl [Cymbalta] 60 mg PO DAILY 11/02/18 [History] Estradiol [Estrace] 1 mg PO DAILY 11/02/18 [History] Iron Polysaccharide Complex [Pro Fe] 180 mg PO DAILY 11/02/18 [History] Levothyroxine [Synthroid] 50 mcg PO 0630 11/02/18 [History] Lisinopril [Zestril] 20 mg PO DAILY 11/02/18 [History] Metoprolol [Lopressor] 50 mg PO BID 11/02/18 [History] Omeprazole [PriLOSEC] 20 mg PO DAILY 11/02/18 [History] Trazodone HCl 50 mg PO HS 11/02/18 [History] glipiZIDE [Glipizide] 10 mg PO DAILY 11/02/18 [History] predniSONE [PredniSONE] 5 mg PO DAILY 11/02/18 [History] Allergy/AdvReac Type Severity Reaction Status Date / Time abatacept [From Orencia] Allergy Difficulty Verified 11/21/18 12:25 Breathing golimumab [From Simponi ARIA] Allergy Hypotension Verified 11/02/18 11:20 adalimumab [From Humira] AdvReac Rash Verified 11/02/18 11:20 oxycodone [From Percocet] AdvReac Itching Verified 01/27/18 10:49 tofacitinib [From Xeljanz] AdvReac Hypertensio Verified 11/02/18 11:20 n tramadol AdvReac Hallucinati Verified 01/27/18 10:49 ng ENT Exam Initial Vital Signs Temp Pulse Resp BP Pulse Ox 98.1 F 117 26 155/116 92 11/21/18 12:09 11/21/18 12:11/21/18 12:11/21/18 12:11/21/18 12:09 - General physical appearance well developed, well nourished, no distress, no pain. negative: moderate distress, severe distress, moderate pain, severe pain, cachectic, obese - Eyes PERRL, normal ocular movement, icteric - ENT normal pinna, normal nares, normal mucosa, no hearing loss, no congestion. negative: decreased hearing, deviated nasal septum, nasal discharge, poor mcc, dentures, mucosal exudate, dry mucosa - Neck no masses (Flexible laryngoscopy), trachea midline, no lymphadectomy, other (Flexible laryngoscopy was performed at the bedside after consultation scope was passed through a nonacute anesthetize nostril left side the vocal cord was visua lized and was substantial polypoid formation very red beefy red with a white area and this is probably preexistent issue and is not got anything to do with her current problem today the rest of the larynx was without any evidence of swelling there was no swelling of the epiglottis laryngeal folds in the pyriforms were open there was no pooling of secretions in the patient's voice was mildly hoarse but this was consistent with what she has had because of the polyp before). negative: deviated trachea, diffuse goiter, limited ROM - Respiratory normal expansion, normal respiratory effort, clear to percussion, clear to auscultation - Abdomen Abdomen: soft, non tender, bowel sounds, no tender, no surgical scars Exam Initial Vital Signs Temp Pulse Resp BP Pulse Ox 98.1 F 117 26 155/116 92 11/21/18 12:09 11/21/18 12:09 11/21/18 12:11/21/18 12:11/21/18 12:09 Results - Labs 11/21/18 13:31 11/21/18 13:31 Abnormal lab results WBC 24.4 K/mcL (4.3-11.1) H 11/21/18 13:31 RBC 5.01 M/mcL (3.82-4.97) H 11/21/18 13:31 Hct 48.0 % (35.3-44.9) H 11/21/18 13:31 MCHC 30.4 g/dL (31.6-35.5) L 11/21/18 13:31 RDW 15.3 % (11.5-14.5) H 11/21/18 13:31 18.4 K/mcL (1.6-8.9) H 11/21/18 13:31 Carbon Dioxide 21 mEq/L (23-29) L 11/21/18 13:31 0.59 mg/dL (0.60-1.20) L 11/21/18 13:31 Glucose 297 mg/dL (70-105) H 11/21/18 13:31 POC Glucose 327 mg/dL (70-99) H 11/21/18 14:17 Calcium 8.3 mg/dL (8.6-10.3) L 11/21/18 13:31 Diabetes panel 11/21/18 Range/Units 13:31 Sodium 137 (136-145) mEq/L Potassium 3.7 (3.5-5.1) mEq/L Chloride 106 (98-107) mEq/L Carbon Dioxide 21 L (23-29) mEq/L BUN 8 (6-20) mg/dL Creatinine 0.59 L (0.60-1.20) mg/dL Glucose 297 H (70-105) mg/dL Calcium 8.3 L (8.6-10.3) mg/dL Calcium panel 11/21/18 Range/Units 13:31 Calcium 8.3 L (8.6-10.3) mg/dL Pituitary panel 11/21/18 Range/Units 13:31 Sodium 137 (136-145) mEq/L Potassium 3.7 (3.5-5.1) mEq/L Chloride 106 (98-107) mEq/L Carbon Dioxide 21 L (23-29) mEq/L BUN 8 (6-20) mg/dL Creatinine 0.59 L (0.60-1.20) mg/dL Glucose 297 H (70-105) mg/dL Calcium 8.3 L (8.6-10.3) mg/dL Adrenal panel 11/21/18 Range/Units 13:31 Sodium 137 (136-145) mEq/L Potassium 3.7 (3.5-5.1) mEq/L Chloride 106 (98-107) mEq/L Carbon Dioxide 21 L (23-29) mEq/L BUN 8 (6-20) mg/dL Creatinine 0.59 L (0.60-1.20) mg/dL Glucose 297 H (70-105) mg/dL Calcium 8.3 L (8.6-10.3) mg/dL All other labs normal. Consult Discharge Plan - Plan Referrals: Elyssa Gatse MD [Primary Care Provider] -
[2018-11-21] MEDS: Famotidine 20 MG/2 ML VIAL IVP SCH (17:54)
[2018-11-21] MEDS: *HR* Heparin 5,000 UNIT/ML VIAL SQ SCH (17:54)
[2018-11-21] MEDS: Insulin LISPRO 300 UNITS/3 ML VIAL SQ SCH (17:57)
[2018-11-21] MEDS ORDERED: Insulin LISPRO 300 UNITS/3 ML VIAL SQ SCH ×2 (18:00→21:00)
[2018-11-21] MEDS ORDERED: MethylPREDNISolone 40 MG/ML VIAL IVP SCH (18:00)
[2018-11-21] MEDS ORDERED: traZODone 50 MG TABLET PO PRN (22:18)
[2018-11-21] MEDS: MethylPREDNISolone 40 MG/ML VIAL IVP SCH (23:50)
[2018-11-22 04:36] LABS: BUN/Creatinine Ratio 18 (6-26); Blood Urea Nitrogen 13 mg/dL (6-20); Calcium 9.3 mg/dL (8.6-10.3); Carbon Dioxide 24 mEq/L (23-29); Chloride 102 mEq/L (98-107); Glucose 273 mg/dL (70-105); Magnesium 1.6 mg/dL (1.6-2.6); Osmolality,Calculated 298 (280-300); Phosphorous 4.2 mg/dL (2.7-4.5); Potassium 3.8 mEq/L (3.5-5.1); Sodium 139 mEq/L (136-145); eGFR For African Americans > 60 (> 60); eGFR For Non-African Americans > 60 (> 60)
[2018-11-22 05:32] LABS: Basophils % 0.2 %; Hematocrit 38.5 % (35.3-44.9); Hemoglobin 12.1 g/dL (11.5-15.4); Immature Granulocytes % 1.5 % (0-4); Lymphocytes # 1.8 K/mcL (0.6-4.6); Lymphocytes % 8.1 %; Mean Corpuscular HGB Conc 31.4 g/dL (31.6-35.5); Mean Corpuscular Hemoglobin 29.5 pg (28.0-33.3); Mean Corpuscular Volume 93.9 fL (83.0-100.0); Mean Platelet Volume 11.1 fL (9.4-12.4); Monocytes # 0.2 K/mcL (0.0-1.3); Monocytes % 1.1 %; Neutrophils # 19.4 K/mcL (1.6-8.9); Platelet Count 306 K/mcL (140-400); Red Cell Distribution Width 15.2 % (11.5-14.5); Segmented Neutrophils % 89.1 %; White Blood Count 21.7 K/mcL (4.3-11.1)
[2018-11-22] MEDS: Famotidine 20 MG/2 ML VIAL IVP SCH (05:37)
[2018-11-22] MEDS: *HR* Heparin 5,000 UNIT/ML VIAL SQ SCH (05:38)
[2018-11-22] MEDS: MethylPREDNISolone 40 MG/ML VIAL IVP SCH (07:44)
[2018-11-22] MEDS: Insulin LISPRO 300 UNITS/3 ML VIAL SQ SCH ×2 (07:44→12:02)
--- NOTE | 2018-11-22 08:40 | Internal Med Progress Note ---
<Mehul Amador - Last Filed: 11/22/18 14:26> Hospitalist Progress Note - Encounter Date of Encounter: 11/22/18 Time of Encounter: 08:40 - Subjective Interval History: Patient seen and examined at bedside this morning. She reports acute complaints at this time. She denies any headache, blurry vision, swelling, rash or hives, difficulty breathing, wheezing, chest pain or palpitations, nausea or vomiting. Her vitals remained appropriate. Oxygen saturation is a little bit low at 90- 91% on room air. However his lab values were within normal limits. Patient does have elevated white count, but may be due to steroids given. Additionally she has elevated glucose which may be due to steroids as well. - Exam Vitals: Temp Pulse Resp BP Pulse Ox 98.5 F 85 17 122/73 89 11/22/18 07:54 11/22/18 08:00 11/22/18 08:00 11/22/18 08:00 11/22/18 08:00 Exam: GEN: This is a pleasant 48-year-old female resting comfortably at bedside with her . Vitals stable. No acute distress. AAOx3 HEENT: Atraumatic, Normocephalic, PERRLA, EOMI; no lip swelling, tongue swelling, throat swelling noted. NECK: Supple, no lymphadenopathy, no JVD CARDIAC: RRR, s1 and s2 present, no murmurs, rubs, gallops PULM: CTAB, not in respiratory distress, no wheezes, rales, crackles, rhonchi ABD: Soft, non-tender, non-distended, no guarding or rebound tenderness. Bowel sounds present. No rashes or lesions or urticaria EXT: No peripheral edema. No calf tenderness, cyanosis, clubbing NEURO: CN 2-12 grossly intact. No focal neurologic deficits. Follows commands PSYCH: Appropriate mood and affect - Assessment and Plan (1) Anaphylaxis Status: Acute Assessment and Plan: Ms. Palm is a 48 year old female with past medical history significant for rheumatoid arthritis, coronary artery disease status post 5 stents, COPD not on home oxygen, diabetes mellitus, hypertension, hyperlipidemia, hypothyroidism who presents to the ED with allergic reaction after infusion at rheumatologic clinic. - Patient was receiving infusion with new medication (Orencia) for rheumatoid arthritis today; noticed symptoms after only 10 minutes and infusion was stopped - Associated symptoms included shortness of breath, sensation of throat closing, elevated blood pressure. - Patient was noted to have worsening mental status on presentation ED - Patient was placed on BiPAP. On exam, patient had expiratory wheezes bilaterally. However she did not have any skin changes, facial swelling, lip swelling, rash, hives or any other pertinent findings. - Received intramuscular epinephrine, albuterol, Pepcid, Solu-Medrol 125 mg, prednisone by mouth 60 mg - CT soft tissue neck (11/21/18): Laryngeal and pharyngeal edema => recommended airway monitoring her protection - S/p Flexible Laryngoscopy which showed no evidence of laryngeal edema PLAN: Patient presents with anaphylaxis after infusion with new medication for rheumatoid arthritis. History of similar symptoms in the past. - ENT recommendations appreciated - Continue monitoring airway. - Monitor vitals and blood pressure. Monitor oxygen saturation. - Supplemental oxygen as needed to keep O2 saturation greater than 92% - BiPAP as needed with respiratory difficulty - Scheduled Duonebs q6h - IM epinephrine as needed for worsening symptoms - Solu-Medrol 40 mg every 8 hours - Pepcid 20 mg every 12 hours (2) COPD (chronic obstructive pulmonary disease) Status: Chronic Assessment and Plan: History of COPD - Notes that she is a daily smoker - Vitals stable, but O2 saturation = 90-91% on room air at time of my exam PLAN: - Continue monitoring of O2 saturation - Supplemental oxygen as needed; titrate to keep O2 saturation greater than 92 % - Solu-Medrol 40 mg every 8 hours - Duonebs every 6 hours (3) Diabetes mellitus type 2 in obese Status: Chronic Assessment and Plan: Diabetes mellitus type 2 on oral medications - Glucose this a.m. = 273 PLAN: - Low dose sliding scale - Accuchecks achs - Diabetic diet (4) Hypertension Status: Chronic Assessment and Plan: BP this a.m. = 122/73 PLAN: - Continue home hypertension medications (5) Hyperlipidemia Status: Chronic Assessment and Plan: PLAN: - Continue home medications (6) Hypothyroidism Status: Chronic Assessment and Plan: PLAN: - Continue home medications (7) Rheumatoid arthritis Status: Chronic Assessment and Plan: History of rheumatoid arthritis - Presents after allergic reaction after receiving new IV infusion in rheumatology clinic PLAN: - Cont to monitor for now - Plan for follow-up with outpatient rheumatology (8) DVT prophylaxis Status: Acute Assessment and Plan: Heparin subcutaneous twice a day DVT Prophylaxis: Heparin subcutaneous twice a day - Time Spent with Patient Total time spent is greater than 50% in coordination of care (as documented) at patient's floor/unit and/or counseling patient: less than 15 minutes Plan of Care Discussed with: patient Internal Medicine: Result - Labs CBC & Chem 7: 11/22/18 05:17 11/22/18 04:00 Labs: Short CBC 11/21/18 11/22/18 Range/Units 13:31 05:17 WBC 24.4 H 21.7 H (4.3-11.1) K/mcL Hgb 14.6 12.1 D (11.5-15.4) g/dL Hct 48.0 H 38.5 (35.3-44.9) % Plt Count 339 306 (140-400) K/mcL Neutrophils # 18.4 H 19.4 H (1.6-8.9) K/mcL BMP 11/21/18 11/22/18 13:31 04:00 Sodium 137 139 Potassium 3.7 3.8 Chloride 106 102 Carbon Dioxide 21 L 24 BUN 8 13 Creatinine 0.59 L 0.73 Glucose 297 H 273 H Calcium 8.3 L 9.3 - Impressions Impressions Chest X-Ray 11/21/18 12:14 IMPRESSION: No acute cardiopulmonary disease. D/ / Whit Talley MD / Whit Talley MD Interpreting Provider: Whit Talley MD Soft Tissue Neck CT 11/21/18 14:13 IMPRESSION: Laryngeal and pharyngeal edema. RECOMMENDATIONS: Airway monitoring or protection. D/ / 11/21/2018 15:38:05 John Shi MD / [facility] Interpreting Provider: John Shi MD Consult Discharge Plan - Plan Instructions: Epinephrine (Injection), Anaphylaxis (DC) Referrals: Elyssa Gates MD [Primary Care Provider] - (Patient was admitted to ICU on 11/21/18 for anaphylaxis after IV infusion of Orencia. Discharged on 11/22/18 to home. ) Leonel Gaming DO [Partnered Physician] - 11/24/18 3:30 pm (Patient was admitted to ICU on 11/21/18 for anaphylaxis after IV infusion of Orencia. Discharged on 11/22/18 to home. ) Prescriptions: DiphenhydraMINE [Benadryl] 25 mg PO Q8HR 7 Days #21 capsule PredniSONE [Deltasone] 40 mg PO DAILY 5 Days #5 tablet EPINEPHrine [Epipen] 0.3 mg IM ONCE PRN #2 kit PRN Reason: Allergic Reaction Famotidine [Pepcid] 20 mg PO Q12HR 7 Days #14 vial <Amy Cee - Last Filed: 11/22/18 19:21> Hospitalist Progress Note - Encounter Date of Encounter: 11/22/18 - Exam Vitals: Temp Pulse Resp BP Pulse Ox 98.5 F 95 18 133/70 93 11/22/18 12:00 11/22/18 14:00 11/22/18 14:00 11/22/18 13:00 11/22/18 14:00 - Time Spent with Patient Total time spent is greater than 50% in coordination of care (as documented) at patient's floor/unit and/or counseling patient: Internal Medicine: Result - Labs CBC & Chem 7: 11/22/18 05:17 11/22/18 04:00 Labs: Short CBC 11/22/18 Range/Units 05:17 WBC 21.7 H (4.3-11.1) K/mcL Hgb 12.1 D (11.5-15.4) g/dL Hct 38.5 (35.3-44.9) % Plt Count 306 (140-400) K/mcL Neutrophils # 19.4 H (1.6-8.9) K/mcL BMP 11/22/18 04:00 Sodium 139 Potassium 3.8 Chloride 102 Carbon Dioxide 24 BUN 13 Creatinine 0.73 Glucose 273 H Calcium 9.3 - Impressions Impressions Soft Tissue Neck CT 11/21/18 14:13 IMPRESSION: Laryngeal and pharyngeal edema. RECOMMENDATIONS: Airway monitoring or protection. D/ / 11/21/2018 15:38:05 John Shi MD / [email or web address] Interpreting Provider: John Shi MD - Attending Attestation I examined this patient and my medical decision-making was reviewed with the Resident Physician. I agree with the documented findings, disposition and treatment plan as described except to the extent set forth below. <MarjorieGiovaniryann - Last Filed: 11/22/18 14:26> (1) Anaphylaxis Qualifiers: Encounter type: subsequent encounter Qualified Code(s): T78.2XXD - Anaphylactic shock, unspecified, subsequent encounter (2) COPD (chronic obstructive pulmonary disease) Qualifiers: COPD type: unspecified COPD Qualified Code(s): J44.9 - Chronic obstructive pulmonary disease, unspecified (4) Hypertension Qualifiers: Hypertension type: unspecified Qualified Code(s): I10 - Essential (primary) hypertension (5) Hyperlipidemia Qualifiers: Hyperlipidemia type: unspecified Qualified Code(s): E78.5 - Hyperlipidemia, unspecified (6) Hypothyroidism Qualifiers: Hypothyroidism type: unspecified Qualified Code(s): E03.9 - Hypothyroidism, unspecified (7) Rheumatoid arthritis Qualifiers: Rheumatoid arthritis location: unspecified site Rheumatoid factor presence: without rheumatoid factor Qualified Code(s): M06.00 - Rheumatoid arthritis without rheumatoid factor, unspecified site
[2018-11-22 13:15] VITALS: BP 133/70
--- NOTE | 2018-11-22 14:32 | Discharge Summary ---
<Mehul Amador - Last Filed: 11/22/18 18:14> - NOTES TO OUTPATIENT PROVIDER Notes to Outpatient Provider: Please cont prednisone 40mg daily for 5 more days, pepcid 20mg twice a day for 7 days, and benadryl 25mg three times a day for the next 7 days. 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 Follow up with PCP within one week Date of Encounter: 11/22/18 Time of Encounter: 14:27 - Discharge Diagnosis (1) Anaphylaxis Priority: Primary Status: Acute Qualifiers: Encounter type: subsequent encounter Qualified Code(s): T78.2XXD - Anaphylactic shock, unspecified, subsequent encounter (2) COPD (chronic obstructive pulmonary disease) Priority: Secondary Status: Chronic Qualifiers: COPD type: unspecified COPD Qualified Code(s): J44.9 - Chronic obstructive pulmonary disease, unspecified (3) Diabetes mellitus type 2 in obese Priority: Secondary Status: Chronic (4) Hypertension Priority: Secondary Status: Chronic Qualifiers: Hypertension type: unspecified Qualified Code(s): I10 - Essential (primary) hypertension (5) Hyperlipidemia Priority: Secondary Status: Chronic Qualifiers: Hyperlipidemia type: unspecified Qualified Code(s): E78.5 - Hyperlipidemia, unspecified (6) Hypothyroidism Priority: Secondary Status: Chronic Qualifiers: Hypothyroidism type: unspecified Qualified Code(s): E03.9 - Hypothyroidism, unspecified (7) Rheumatoid arthritis Priority: Secondary Status: Chronic Qualifiers: Rheumatoid arthritis location: unspecified site Rheumatoid factor presence: without rheumatoid factor Qualified Code(s): M06.00 - Rheumatoid arthritis without rheumatoid factor, unspecified site (8) DVT prophylaxis Priority: Secondary Status: Acute Hospital course: Ms. Palm is a 48 year old female with past medical history significant for rheumatoid arthritis, coronary artery disease status post stenting procedures, COPD, diabetes mellitus, hypertension, hyperlipidemia, hypothyroidism who initially presented to the ED with shortness of breath and respiratory distress after receiving infusion the rheumatology clinic. Patient noted symptoms of "feeling funny" after only 10-15 minutes of infusion. She has history of allergic reactions to previous infusions of rheumatology clinic in the past. In the ED, patient was noted to be hypertensive, and hypoxic. The patient did have expiratory wheezes on exam, no signs of rash, urticaria. She did not appear to have any visual swelling of the lips of the tongue or the throat. Patient had received intramuscular epinephrine, albuterol, ranitidine, methylprednisolone 125 mg, oral prednisone 60 mg. With worsening mental status and difficulty breathing, she was placed on BiPAP. Patient was admitted to the ICU for further management. CT scan of the soft tissue of the neck was done and did show laryngeal and pharyngeal erythema. ENT was consult for flexible laryngoscopy. Laryngoscopy showed no evidence of laryngeal edema. Patient was continued on IV steroids every 8 hours, famotidine every 12 hours, DuoNeb's every 6 hours, and supported with supplemental oxygen and BiPAP. Patient improved a few hours after initial presentation. She was monitored for over 24 hours in the ICU. Patient is currently stable. Vital signs are within normal limits. She is experiencing no respiratory distress. Lab work was benign. Plan to discharge patient home with EpiPen 2 pack, prednisone 40 mg for 5 days, Benadryl 25 mg 3 times a day, Pepcid 20 mg twice a day. Discharge discussed with: patient - Time Spent with Patient Total time spent providing and/or coordinating discharge services: Time spent: Less than 30 minutes, D/C greater than 8 hours after Admission - Discharge Medications Prescriptions: New EPINEPHrine [Epipen] 0.3 mg IM ONCE PRN #2 kit PRN Reason: Allergic Reaction Famotidine [Pepcid] 20 mg PO Q12HR 7 Days #14 vial DiphenhydraMINE [Benadryl] 25 mg PO Q8HR 7 Days #21 capsule PredniSONE [Deltasone] 40 mg PO DAILY 5 Days #5 tablet No Action Alogliptin Benzoate [Alogliptin] 25 mg PO DAILY Atorvastatin Calcium [Lipitor] 80 mg PO HS Budesonide/Formoterol 160/4.5 [Symbicort 160/4.5] 1 puff IH BIDR Cetirizine HCl [24Hour Allergy] 10 mg PO DAILY Dapagliflozin Propanediol [Farxiga] 10 mg PO DAILY Duloxetine HCl [Cymbalta] 60 mg PO DAILY Estradiol [Estrace] 1 mg PO DAILY glipiZIDE [Glipizide] 10 mg PO DAILY Iron Polysaccharide Complex [Pro Fe] 180 mg PO DAILY Levothyroxine [Synthroid] 50 mcg PO 0630 Lisinopril [Zestril] 20 mg PO DAILY Metoprolol [Lopressor] 50 mg PO BID predniSONE [PredniSONE] 5 mg PO DAILY Trazodone HCl 50 mg PO HS Omeprazole [PriLOSEC] 20 mg PO DAILY Home Medications: Alogliptin Benzoate [Alogliptin] 25 mg PO DAILY 11/02/18 [History] Atorvastatin Calcium [Lipitor] 80 mg PO HS 11/02/18 [History] Budesonide/Formoterol 160/4.5 [Symbicort 160/4.5] 1 puff IH BIDR 11/02/18 [History] Cetirizine HCl [24Hour Allergy] 10 mg PO DAILY 11/02/18 [History] Dapagliflozin Propanediol [Farxiga] 10 mg PO DAILY 11/02/18 [History] Duloxetine HCl [Cymbalta] 60 mg PO DAILY 11/02/18 [History] Estradiol [Estrace] 1 mg PO DAILY 11/02/18 [History] Iron Polysaccharide Complex [Pro Fe] 180 mg PO DAILY 11/02/18 [History] Levothyroxine [Synthroid] 50 mcg PO 0630 11/02/18 [History] Lisinopril [Zestril] 20 mg PO DAILY 11/02/18 [History] Metoprolol [Lopressor] 50 mg PO BID 11/02/18 [History] Omeprazole [PriLOSEC] 20 mg PO DAILY 11/02/18 [History] Trazodone HCl 50 mg PO HS 11/02/18 [History] glipiZIDE [Glipizide] 10 mg PO DAILY 11/02/18 [History] predniSONE [PredniSONE] 5 mg PO DAILY 11/02/18 [History] DiphenhydraMINE [Benadryl] 25 mg PO Q8HR 7 Days #21 capsule 11/22/18 [Rx] EPINEPHrine [Epipen] 0.3 mg IM ONCE PRN #2 kit 11/22/18 [Rx] Famotidine [Pepcid] 20 mg PO Q12HR 7 Days #14 vial 11/22/18 [Rx] PredniSONE [Deltasone] 40 mg PO DAILY 5 Days #5 tablet 11/22/18 [Rx] Allergies/Adverse Reactions: Allergy/AdvReac Type Severity Reaction Status Date / Time abatacept [From Orencia] Allergy Difficulty Verified 11/21/18 12:25 Breathing golimumab [From Simponi ARIA] Allergy Hypotension Verified 11/02/18 11:20 adalimumab [From Humira] AdvReac Rash Verified 11/02/18 11:20 oxycodone [From Percocet] AdvReac Itching Verified 01/27/18 10:49 tofacitinib [From Xeljanz] AdvReac Hypertensio Verified 11/02/18 11:20 n tramadol AdvReac Hallucinati Verified 01/27/18 10:49 ng Date of admission: 11/21/18 15:06 Primary care physician: Elyssa Gates Consults: 11/21/18 16:38 Consult to ENT [CONS] Routine Consulting Provider: [facility] [place] Reason for Consult: laryngeal edema Call Completed: Yes Discharging clinician: Mehul Amador Anticipated date of discharge: 11/22/18 - Constitutional Vitals: Temp Pulse Resp BP Pulse Ox 98.5 F 90 18 133/70 94 11/22/18 12:00 11/22/18 13:00 11/22/18 13:00 11/22/18 13:00 11/22/18 13:00 General appearance: Present: cooperative, mild distress, A&O X 3, pleasant, answers questions appropriately Exam: Pleasant 48-year-old woman resting at bedside. Accompanied by . No acut e distress at this time. Resting comfortably. Lungs are clear to auscultation. No swelling of the lips or tongue. No evidence of rash or hives. - Head Head exam: Present: atraumatic, normal inspection, normocephalic - Eye Eye exam: Present: EOMI - ENT ENT exam: Present: mucous membranes moist - Neck Neck exam general surgery: Present: full ROM, supple - Respiratory Respiratory exam: Present: CTAB. Absent: rales, respiratory distress, rhonchi, stridor, wheezes - Cardiovascular Cardiovascular exam: Present: RRR, +S1, +S2 - GI/Abdominal GI/Abdominal exam: Present: soft, no peritoneal signs. Absent: distended, guarding, rebound, rigid - Neurological Exam Neurological exam: Present: alert, oriented X3, no focal deficits - Psychiatric Psychiatric exam: Present: normal affect, normal mood - Patient Status Disposition: Home, Self-Care Condition: Good Functional capacity at discharge: independent ambulation Overall status at discharge: patient is progressing back to baseline - Discharge Instructions Instructions: Epinephrine (Injection), Anaphylaxis (DC) Follow Up With: Elyssa Gates MD [Primary Care Provider] - (Patient was admitted to ICU on 11/21/18 for anaphylaxis after IV infusion of Orencia. Discharged on 11/22/18 to home. ) Leonel Gaming DO [Partnered Physician] - 11/24/18 3:30 pm (Patient was admitted to ICU on 11/21/18 for anaphylaxis after IV infusion of Orencia. Discharged on 11/22/18 to home. ) - Diet and Activity Activity: increase activity as tolerated Diet: diabetic diet <[email or web address] - Last Filed: 11/22/18 19:26> Date of Encounter: 11/22/18 Hospital course: Ms. Palm is a 48 year old female - Time Spent with Patient Total time spent providing and/or coordinating discharge services: Date of admission: 11/21/18 15:06 Primary care physician: Elyssa Gates Consults: 11/21/18 16:38 Consult to ENT [CONS] Routine Consulting Provider: [facility] [place] Reason for Consult: laryngeal edema Call Completed: Yes - Constitutional Vitals: Temp Pulse Resp BP Pulse Ox 98.5 F 95 18 133/70 93 11/22/18 12:00 11/22/18 14:00 11/22/18 14:00 11/22/18 13:00 11/22/18 14:00 - Attending Attestation I examined this patient and my medical decision-making was reviewed with the Resident Physician. I agree with the documented findings, disposition and treatment plan as described except to the extent set forth below. 48 year old female here after having anaphylaxis after infusion of biologic Oracia within 12 minutes of infusion. She required doses of benadryl and IM epinephrine prior to arrival to ED. Patient symptoms resolved with epinephrine, benadryl, pepcid, Solu Medrol. She was observed in ICU and ENT evaluated patient. Appeared to have no laryngeal edema by that evaluation. Patient normal oxygen saturation on room air and hemodynamically stable. She was discharged in stable condition. During admission ENT physician Dr. Galo recommended that prior to receiving any further biologics that an ENT specialist is present to observe patient for any signs or symptoms of anaphylaxis.
[2018-11-22] MEDS ORDERED: Ipratropium/Albuterol Neb 3 ML IH SCH (16:00)
[2018-11-23] MEDS ORDERED: Loratadine 10 MG TABLET PO SCH (09:00)
[2018-11-23] MEDS ORDERED: Lisinopril 20 MG TABLET PO SCH (09:00)
== END 2018-11-22 16:25 | disposition home or self-care (01) | DRG 811 ==
LOC: ICNU 12:04 → EMEROOARM 12:04 → ICNU 13:45
PROVIDERS: ADMIT Student in an Organized Health Care Education/Training Program; ATTEND Student in an Organized Health Care Education/Training Program

== ENCOUNTER 2019-04-29 09:47 | Inpatient (IN) ==
[2019-04-29] MEDS ORDERED: Isovue-370 500 ML BOTTLE IVP ONE (10:22)
[2019-04-29 11:06] LABS: Hematocrit 43.1 % (35.3-44.9); Hemoglobin 13.7 g/dL (11.5-15.4); Mean Corpuscular HGB Conc 31.8 g/dL (31.6-35.5); Mean Corpuscular Hemoglobin 29.5 pg (28.0-33.3); Mean Corpuscular Volume 92.7 fL (83.0-100.0); Mean Platelet Volume 10.7 fL (9.4-12.4); Platelet Count 346 K/mcL (140-400); Red Blood Count 4.65 M/mcL (3.82-4.97); Red Cell Distribution Width 14.9 % (11.5-14.5); White Blood Count 8.6 K/mcL (4.3-11.1)
[2019-04-29 11:20] LABS: Alanine Aminotransferase 19 Units/L (7-52); Albumin 3.6 g/dL (3.5-5.7); Albumin/Globulin Ratio 1.1 (1.1-2.2); Alkaline Phosphatase 62 Units/L (34-104); Aspartate Amino Transferase 27 Units/L (13-39); BUN/Creatinine Ratio 12 (6-26); Bilirubin,Direct 0.2 mg/dL (0.0-0.2); Bilirubin,Indirect 0.6 mg/dL (0.0-1.0); Bilirubin,Total 0.8 mg/dL (0.3-1.0); Blood Urea Nitrogen 7 mg/dL (6-20); Calcium 9.4 mg/dL (8.6-10.3); Carbon Dioxide 30 mEq/L (23-29); Chloride 101 mEq/L (98-107); Globulin 3.3 g/dL (2.4-3.5); Glucose 131 mg/dL (70-105); Lipase 18 Units/L (11-82); Osmolality,Calculated 284 (280-300); Potassium 3.5 mEq/L (3.5-5.1); Sodium 137 mEq/L (136-145); Total Protein 6.9 g/dL (6.4-8.9); eGFR For African Americans > 60 (> 60); eGFR For Non-African Americans > 60 (> 60)
[2019-04-29 11:22] LABS: Bilirubin,Urine Negative (Negative); Blood,Urine Negative (Negative); Clarity,Urine Clear (Clear); Color,Urine Yellow (Yellow); Glucose,Urine (UA) >=1000 mg/dL (Normal); Ketones,Urine Negative (Negative); Leukocyte Esterase,Urine Negative (Negative); Nitrite,Urine Negative (Negative); PH,Urine 6.5 pH Units (5.0-8.0); Protein,Urine Negative (Neg-Trace); Specific Gravity,Urine 1.017 (1.010-1.025); Urobilinogen,Urine Normal (Normal)
[2019-04-29] MEDS ORDERED: Ondansetron 4 MG/2 ML VIAL IVP PRN (15:03)
[2019-04-29] MEDS ORDERED: Naloxone 0.4 MG/ML INJ IVP PRN (15:03)
[2019-04-29] MEDS ORDERED: Albuterol 2.5 MG/3 ML NEBULIZER IH PRN (15:07)
[2019-04-29] MEDS ORDERED: *HR* Dextrose 50 % in Water (Syg) 50 ML SYRINGE IVP PRN (15:12)
[2019-04-29] MEDS ORDERED: D5% in Water 1,000 ML IVC PRN (15:12)
[2019-04-29] MEDS ORDERED: Dextrose Gel 15 GM/37.5 ML TUBE PO PRN ×2 (15:12)
[2019-04-29 16:51] LABS: Estimated Average Glucose 192 mg/dl
[2019-04-29] MEDS: Ipratropium/Albuterol Neb 3 ML IH SCH ×2 (16:57→22:38)
[2019-04-29] MEDS: MethylPREDNISolone 40 MG/ML VIAL IVP SCH (17:02)
[2019-04-29] MEDS: levoFLOXacin 750 MG/150 ML 750 MG/150 ML BAG IVPB SCH (17:02)
[2019-04-29] MEDS: Insulin LISPRO 300 UNITS/3 ML VIAL SQ SCH ×2 (17:21→21:24)
[2019-04-29] MEDS: *HR* Heparin 5,000 UNIT/ML VIAL SQ SCH (18:15)
[2019-04-29] MEDS ORDERED: Loratadine 10 MG TABLET PO STA (20:48)
[2019-04-29] MEDS: traZODone 50 MG TABLET PO SCH (21:24)
[2019-04-29] MEDS ORDERED: Acetaminophen 325 MG TABLET PO PRN (23:43)
[2019-04-30] MEDS: MethylPREDNISolone 40 MG/ML VIAL IVP SCH ×3 (00:07→16:19)
[2019-04-30] MEDS: Ipratropium/Albuterol Neb 3 ML IH SCH ×4 (04:01→22:38)
[2019-04-30] MEDS: *HR* Heparin 5,000 UNIT/ML VIAL SQ SCH ×2 (05:56→16:19)
[2019-04-30 07:12] LABS: Basophils % 0.2 %; Hematocrit 45.1 % (35.3-44.9); Hemoglobin 14.1 g/dL (11.5-15.4); Immature Granulocytes % 0.5 % (0-4); Lymphocytes # 0.9 K/mcL (0.6-4.6); Lymphocytes % 9.5 %; Mean Corpuscular HGB Conc 31.3 g/dL (31.6-35.5); Mean Corpuscular Volume 92.6 fL (83.0-100.0); Mean Platelet Volume 11.3 fL (9.4-12.4); Monocytes # 0.1 K/mcL (0.0-1.3); Monocytes % 1.1 %; Neutrophils # 8.3 K/mcL (1.6-8.9); Platelet Count 413 K/mcL (140-400); Red Blood Count 4.87 M/mcL (3.82-4.97); Red Cell Distribution Width 14.7 % (11.5-14.5); Segmented Neutrophils % 88.7 %; White Blood Count 9.4 K/mcL (4.3-11.1)
[2019-04-30 07:33] LABS: Alanine Aminotransferase 18 Units/L (7-52); Albumin/Globulin Ratio 1.1 (1.1-2.2); Alkaline Phosphatase 67 Units/L (34-104); Aspartate Amino Transferase 24 Units/L (13-39); BUN/Creatinine Ratio 21 (6-26); Bilirubin,Total 0.6 mg/dL (0.3-1.0); Blood Urea Nitrogen 12 mg/dL (6-20); Calcium 9.9 mg/dL (8.6-10.3); Carbon Dioxide 25 mEq/L (23-29); Chloride 103 mEq/L (98-107); Globulin 3.7 g/dL (2.4-3.5); Glucose 199 mg/dL (70-105); Osmolality,Calculated 293 (280-300); Sodium 139 mEq/L (136-145); Total Protein 7.7 g/dL (6.4-8.9); eGFR For African Americans > 60 (> 60); eGFR For Non-African Americans > 60 (> 60)
[2019-04-30] MEDS ORDERED: predniSONE 5 MG TABLET PO SCH (09:00)
[2019-04-30] MEDS: levoFLOXacin 750 MG/150 ML 750 MG/150 ML BAG IVPB SCH (09:38)
[2019-04-30] MEDS: Loratadine 10 MG TABLET PO SCH (09:38)
[2019-04-30] MEDS: Lisinopril 20 MG TABLET PO SCH (09:38)
[2019-04-30] MEDS: Insulin LISPRO 300 UNITS/3 ML VIAL SQ SCH ×4 (09:40→20:37)
[2019-04-30] MEDS ORDERED: Insulin LISPRO 300 UNITS/3 ML VIAL SQ STA (17:28)
[2019-04-30] MEDS: traZODone 50 MG TABLET PO SCH (20:37)
[2019-05-01] MEDS: MethylPREDNISolone 40 MG/ML VIAL IVP SCH (00:09)
[2019-05-01] MEDS: Ipratropium/Albuterol Neb 3 ML IH SCH ×4 (03:12→22:04)
[2019-05-01] MEDS: *HR* Heparin 5,000 UNIT/ML VIAL SQ SCH ×2 (05:55→17:49)
[2019-05-01] MEDS: Insulin LISPRO 300 UNITS/3 ML VIAL SQ SCH ×4 (08:34→20:10)
[2019-05-01] MEDS: predniSONE 20 MG TABLET PO SCH (08:35)
[2019-05-01] MEDS: levoFLOXacin 750 MG TABLET PO SCH (08:35)
[2019-05-01] MEDS: Loratadine 10 MG TABLET PO SCH (08:35)
[2019-05-01] MEDS: Lisinopril 20 MG TABLET PO SCH (08:35)
[2019-05-01 15:37] LABS: Basophils % 0.2 %; Hemoglobin 13.3 g/dL (11.5-15.4); Immature Granulocytes % 1.1 % (0-4); Lymphocytes # 0.7 K/mcL (0.6-4.6); Mean Corpuscular HGB Conc 31.7 g/dL (31.6-35.5); Mean Corpuscular Hemoglobin 29.2 pg (28.0-33.3); Mean Corpuscular Volume 92.1 fL (83.0-100.0); Mean Platelet Volume 11.5 fL (9.4-12.4); Monocytes # 0.7 K/mcL (0.0-1.3); Monocytes % 4.2 %; Platelet Count 408 K/mcL (140-400); Red Blood Count 4.56 M/mcL (3.82-4.97); Red Cell Distribution Width 15.4 % (11.5-14.5); Segmented Neutrophils % 90.5 %; White Blood Count 17.7 K/mcL (4.3-11.1)
[2019-05-01] MEDS: traZODone 50 MG TABLET PO SCH (20:04)
[2019-05-01] MEDS ORDERED: Insulin DETEMIR 100 UNIT/ML X5UNITS SQ SCH (21:00)
[2019-05-02] MEDS: Ipratropium/Albuterol Neb 3 ML IH SCH ×4 (03:59→21:32)
[2019-05-02 05:25] LABS: Basophils % 0.2 %; Hematocrit 39.5 % (35.3-44.9); Hemoglobin 12.8 g/dL (11.5-15.4); Immature Granulocytes % 0.7 % (0-4); Lymphocytes # 1.9 K/mcL (0.6-4.6); Lymphocytes % 15.9 %; Mean Corpuscular HGB Conc 32.4 g/dL (31.6-35.5); Mean Corpuscular Hemoglobin 29.6 pg (28.0-33.3); Mean Corpuscular Volume 91.2 fL (83.0-100.0); Mean Platelet Volume 11.6 fL (9.4-12.4); Monocytes # 0.8 K/mcL (0.0-1.3); Monocytes % 6.2 %; Neutrophils # 9.4 K/mcL (1.6-8.9); Platelet Count 383 K/mcL (140-400); Red Blood Count 4.33 M/mcL (3.82-4.97); Red Cell Distribution Width 15.5 % (11.5-14.5); White Blood Count 12.2 K/mcL (4.3-11.1)
[2019-05-02 05:42] LABS: BUN/Creatinine Ratio 31 (6-26); Blood Urea Nitrogen 20 mg/dL (6-20); Carbon Dioxide 25 mEq/L (23-29); Chloride 102 mEq/L (98-107); Glucose 305 mg/dL (70-105); Osmolality,Calculated 298 (280-300); Potassium 3.4 mEq/L (3.5-5.1); Sodium 137 mEq/L (136-145); eGFR For African Americans > 60 (> 60); eGFR For Non-African Americans > 60 (> 60)
[2019-05-02] MEDS: *HR* Heparin 5,000 UNIT/ML VIAL SQ SCH (06:06)
[2019-05-02] MEDS ORDERED: Potassium Chloride 20 MEQ, Lidocaine 1% 2 ML in 0.9 % Sodium Chloride 250 ML IVPB ONE (08:12)
[2019-05-02] MEDS: Insulin LISPRO 300 UNITS/3 ML VIAL SQ SCH ×3 (10:25→20:34)
[2019-05-02] MEDS: Lisinopril 20 MG TABLET PO SCH (10:45)
[2019-05-02] MEDS: predniSONE 20 MG TABLET PO SCH (10:45)
[2019-05-02] MEDS: levoFLOXacin 750 MG TABLET PO SCH (10:45)
[2019-05-02] MEDS: Loratadine 10 MG TABLET PO SCH (10:45)
[2019-05-02] MEDS ORDERED: *HR* FentaNYL (PF) 100 MCG/2 ML VIAL ONE ×2 (16:36→17:21)
[2019-05-02] MEDS ORDERED: Lidocaine -MPF 2% 2 ML VIAL ONE (16:36)
[2019-05-02] MEDS ORDERED: *HR* Rocuronium Bromide 50 MG/5 ML VIAL ONE (16:36)
[2019-05-02] MEDS ORDERED: Dexamethasone 4 MG/ML VIAL ONE ×2 (16:36)
[2019-05-02] MEDS ORDERED: *HR* Propofol 200 MG/20 ML VIAL IVP ONE (16:36)
[2019-05-02] MEDS ORDERED: Ondansetron 4 MG/2 ML VIAL ONE (16:36)
[2019-05-02] MEDS ORDERED: Lidocaine -MPF 4% 5 ML AMPUL ONE (16:36)
[2019-05-02] MEDS ORDERED: *HR* Midazolam HCl 2 MG/2 ML VIAL ONE (16:36)
[2019-05-02] MEDS ORDERED: Morphine Sulfate 2 MG/ML SYRINGE IVP PRN (16:43)
[2019-05-02] MEDS ORDERED: *HR* Midazolam HCl 2 MG/2 ML VIAL IVP PRN ×2 (16:43→18:18)
[2019-05-02] MEDS ORDERED: Ondansetron 4 MG/2 ML VIAL IVP ONE ×2 (16:43→18:18)
[2019-05-02] MEDS ORDERED: Esmolol 100 MG/10 ML VIAL IVP ONE (17:35)
[2019-05-02] MEDS ORDERED: *HR* Labetalol 20 MG/4 ML SYRINGE IVP ONE (17:39)
[2019-05-02] MEDS ORDERED: *HR* HYDROMORPHONE 2 MG/ML VIAL ONE (17:42)
[2019-05-02] MEDS ORDERED: Dextrose Gel 15 GM/37.5 ML TUBE PO PRN ×2 (18:18)
[2019-05-02] MEDS ORDERED: Ondansetron 4 MG/2 ML VIAL IVP PRN (18:18)
[2019-05-02] MEDS ORDERED: Acetaminophen 325 MG TABLET PO PRN (18:18)
[2019-05-02] MEDS ORDERED: Albuterol 2.5 MG/3 ML NEBULIZER IH PRN (18:18)
[2019-05-02] MEDS ORDERED: Naloxone 0.4 MG/ML INJ IVP PRN (18:18)
[2019-05-02] MEDS ORDERED: *HR* Dextrose 50 % in Water (Syg) 50 ML SYRINGE IVP PRN (18:18)
[2019-05-02] MEDS ORDERED: D5% in Water 1,000 ML IVC PRN (18:18)
[2019-05-02] MEDS: Morphine Sulfate 2 MG/ML SYRINGE IVP PRN ×2 (18:48→19:51)
[2019-05-02] MEDS: 0.9 % Sodium Chloride 1,000 ML IVC SCH (19:52)
[2019-05-02] MEDS: *HR* HYDROcodone/Acet 5/325 mg TABLET PO PRN (19:52)
[2019-05-02] MEDS: traZODone 50 MG TABLET PO SCH (20:35)
[2019-05-02] MEDS: Gabapentin 300 MG CAPSULE PO SCH (20:35)
[2019-05-02] MEDS: Insulin DETEMIR 100 UNIT/ML X5UNITS SQ SCH (20:36)
[2019-05-03] MEDS: *HR* HYDROcodone/Acet 5/325 mg TABLET PO PRN ×5 (00:10→19:37)
[2019-05-03] MEDS: Ipratropium/Albuterol Neb 3 ML IH SCH ×4 (02:37→22:13)
[2019-05-03 05:27] LABS: Basophils % 0.2 %; Hematocrit 38.7 % (35.3-44.9); Hemoglobin 12.8 g/dL (11.5-15.4); Immature Granulocytes % 1.1 % (0-4); Lymphocytes # 1.1 K/mcL (0.6-4.6); Lymphocytes % 9.7 %; Mean Corpuscular HGB Conc 33.1 g/dL (31.6-35.5); Mean Corpuscular Hemoglobin 29.3 pg (28.0-33.3); Mean Corpuscular Volume 88.6 fL (83.0-100.0); Mean Platelet Volume 11.4 fL (9.4-12.4); Monocytes # 0.5 K/mcL (0.0-1.3); Monocytes % 4.4 %; Neutrophils # 9.1 K/mcL (1.6-8.9); Platelet Count 350 K/mcL (140-400); Red Blood Count 4.37 M/mcL (3.82-4.97); Red Cell Distribution Width 15.6 % (11.5-14.5); Segmented Neutrophils % 84.6 %; White Blood Count 10.8 K/mcL (4.3-11.1)
[2019-05-03 05:54] LABS: BUN/Creatinine Ratio 27 (6-26); Blood Urea Nitrogen 14 mg/dL (6-20); Calcium 8.8 mg/dL (8.6-10.3); Carbon Dioxide 27 mEq/L (23-29); Chloride 99 mEq/L (98-107); Glucose 275 mg/dL (70-105); Osmolality,Calculated 290 (280-300); Potassium 4.3 mEq/L (3.5-5.1); Sodium 135 mEq/L (136-145); eGFR For African Americans > 60 (> 60); eGFR For Non-African Americans > 60 (> 60)
[2019-05-03] MEDS: *HR* Heparin 5,000 UNIT/ML VIAL SQ SCH ×3 (06:29→18:22)
[2019-05-03] MEDS: Gabapentin 300 MG CAPSULE PO SCH ×3 (08:23→19:37)
[2019-05-03] MEDS: Lisinopril 20 MG TABLET PO SCH (08:24)
[2019-05-03] MEDS: Loratadine 10 MG TABLET PO SCH (08:24)
[2019-05-03] MEDS: Insulin LISPRO 300 UNITS/3 ML VIAL SQ SCH ×5 (08:24→22:25)
[2019-05-03] MEDS ORDERED: predniSONE 20 MG TABLET PO SCH (09:00)
[2019-05-03] MEDS ORDERED: levoFLOXacin 750 MG TABLET PO SCH (09:00)
[2019-05-03] MEDS: 0.9 % Sodium Chloride 1,000 ML IVC SCH (09:18)
[2019-05-03] MEDS: traZODone 50 MG TABLET PO SCH (19:37)
[2019-05-03] MEDS: Insulin DETEMIR 100 UNIT/ML X5UNITS SQ SCH (22:26)
[2019-05-04] MEDS: Ipratropium/Albuterol Neb 3 ML IH SCH ×2 (03:36→11:31)
[2019-05-04] MEDS: *HR* Heparin 5,000 UNIT/ML VIAL SQ SCH (06:53)
[2019-05-04] MEDS: *HR* HYDROcodone/Acet 5/325 mg TABLET PO PRN ×2 (07:00→11:13)
[2019-05-04 07:54] VITALS: BP 178/103
[2019-05-04] MEDS: Gabapentin 300 MG CAPSULE PO SCH (08:03)
[2019-05-04] MEDS: Loratadine 10 MG TABLET PO SCH (08:03)
[2019-05-04] MEDS: Lisinopril 20 MG TABLET PO SCH (08:03)
[2019-05-04] MEDS: Insulin LISPRO 300 UNITS/3 ML VIAL SQ SCH (08:05)
[2019-05-04] MEDS ORDERED: FLU Vac QV 19-20 (6Month+)/PF 0.5 ML SYRINGE IM ONE (10:14)
[2019-05-04] MEDS ORDERED: predniSONE 20 MG TABLET PO ONE (10:33)
== END 2019-05-04 12:57 | disposition home or self-care (01) | DRG 121 ==
LOC: EMEROOARM 09:47 → 3BNU 09:47 → SUATTDRO 14:19 → 3BNU 14:55 → ICNU 05-02 18:16 → 2NNU 05-03 17:18
PROVIDERS: ADMIT Internal Medicine; ATTEND Internal Medicine